=== PATIENT | male | born 1945 | race Caucasian/White ===

== ENCOUNTER → 2018-02-21 07:01 | Outpatient (CLI) | payer MEDICARE, BC, SELFPAY ==
[2018-02-21 10:32] LABS: Anion Gap 9 (5-15); BUN 16 mg/dL (7-18); BUN/Creat Ratio 18.1 RATIO (10-20); Calcium,Total 8.7 mg/dL (8.5-10.1); Chloride 105 mmol/L (98-107); Cholesterol 186 mg/dL (200); Creatinine, Serum 0.88 mg/dL (0.70-1.30); EST Glomerular Filtration Rate 90 mL/min (>60); Est Glom Filt Rate - Afr Amer 109 mL/min (>60); Glucose 115 mg/dL (74-106); High Density Lipoprotein 35 mg/dL; PSA,Total - Annual Screen 6.31 ng/mL (0.00-4.00); Potassium 3.9 mmol/L (3.5-5.1); Sodium Level 140 mmol/L (136-145); Triglycerides 95 mg/dL; Very Low Density Lipoprotein 19 mg/dL (5-40)
== END ==
PROVIDERS: Family Provider Family Medicine; PCP Family Medicine; Visit Provider Family Medicine
DX: Z00.00 Encounter for general adult medical examination without abnormal findings (principal); Z12.5 Encounter for screening for malignant neoplasm of prostate
CPT/HCPCS: 36415; 80048; 80061; 84153; G0103

== ENCOUNTER → 2018-12-08 08:57 | Outpatient (CLI) | payer MEDICARE, BC, SELFPAY ==
--- NOTE | 2018-12-08 | IMM_PTH ---
PATIENT: AXEL BAUER LOC: [facility] U#:[id number] AGE/SX: 80/M ROOM: RE12/08/[address]: Dr. Cj Church MD : 1945 BED: DIS: SPEC #: [id number] RECD: 12/12/18 10:57 STATUS: TINO REVern #: [id number] KIMBERLY: 12/08/18 00:[address]: Cj Church DEPT: IMMUNOHISTOCHEMISTRY RECD BY: Evangelina Lizarraga ENTERED: 12/12/18 10:58 SP TYPE: IMMUNO OTHR DR: Dr. Binh Vargas MD Tissues: B - PROSTATE RIGHT C - PROSTATE RIGHT E - PROSTATE LEFT Procedures: 34BE12 (add) P40 (add) 34BE12 (initial) PHYSICIAN & INSTITUTION [place] [id number] SPECIMEN INFORMATION: Tissue Source: B - Right prostate mid, C - Right prostate base, E - Left prostate mid Clinical Info: Elevated PSA Specimen Number: [id number] B, C & E CPT code: 00467, 22040 x5 METHODOLOGY: Deparaffinized sections of prefer/formalin-fixed tissue or PAP/DQ stained slides are incubated with monoclonal/polyclonal antibodies/oligonucleotide probes. Localization is made via biotin free immunoperoxidase method. Appropriate controls are performed and reacted as expected. Results on target cell population are indicated in the following table: RESULTS: ANTIBODY / CLONE RESULT Block B 34BE12 (34BE12) negative P40 (BC28) negative Block C 34BE12 (34BE12) negative P40 (BC28) negative Block E 34BE12 (34BE12) negative P40 (BC28) negative These tests were developed and their performance characteristics determined by [facility]. They may not have been cleared or approved by the U.S. Food and Drug Administration. The FDA has determined that such clearance or approval is not necessary. INTERPRETATION: B. Right prostate, mid, core biopsy: Adenocarcinoma. C. Right prostate, base, core biopsy: Adenocarcinoma. E. Left prostate, mid, core biopsy: Focal atypical small acinar proliferation suspicious for minute focus of adenocarcinoma. AM:michael 12/13/18
--- NOTE | 2018-12-08 | PROSBIL_PTH ---
PATIENT: AXEL BAUER LOC: [facility] U#:[id number] AGE/SX: 80/M ROOM: RE12/08/[address]: Dr. Cj Church MD : 1945 BED: DIS: SPEC #: [id number] RECD: 12/08/18 17:25 STATUS: TINO KIRAN #: [id number] KIMBERLY: 12/08/18 00:[address]: Cj Church DEPT: SURGICAL PATHOLOGY RECD BY: Edmar Teague ENTERED: 12/09/18 09:03 SP TYPE: PROST BX YUDI DR: Dr. Binh Vargas MD Tissues: A - PROSTATE RIGHT B - PROSTATE RIGHT C - PROSTATE RIGHT D - PROSTATE LEFT E - PROSTATE LEFT F - PROSTATE LEFT Procedures: PROSTATE BX HEADER OPERATION: Prostate biopsy PRE-OP DIAGNOSIS: Elevated PSA TISSUE SUBMITTED: A - Right apex, B - Right mid, C - Right base, D - Left apex, E - Left mid, F - Left base MICROSCOPIC DIAGNOSIS A. Right prostate, apex, core biopsy: Mild chronic inflammation and focal glandular atrophy. B. Right prostate, mid, core biopsy: Adenocarcinoma: [place] grade: 6 (3+3) Cores involved: 1 out of 2 Tissue involved: <1% Greatest tumor length: 1 mm See comment. C. Right prostate, base, core biopsy: Adenocarcinoma: [place] grade: 6 (3+3) Cores involved: 1 out of 2 Tissue involved: 5% Greatest tumor length: 3 mm Other - focal atypical small acinar proliferation. See comment. D. Left prostate, apex, core biopsy: Mild chronic inflammation and glandular atrophy. E. Left prostate, mid, core biopsy: Mild chronic inflammation and glandular atrophy. Focal atypical small acinar proliferation suspicious for minute focus of adenocarcinoma. See comment. F. Left prostate, base, core biopsy: Mild chronic inflammation & glandular atrophy. Focal high-grade prostatic intraepithelial neoplasia (HGPIN). AM:michael 12/12/18 COMMENT B, C & E - Immunohistochemistry ([id number]) supports the above diagnosis. Case has been reviewed in consultation with Dr. Villa who concurs with the above diagnosis. IDC:SJ MICROSCOPIC DESCRIPTION Slides are reviewed. GROSS DESCRIPTION A - Received is one container designated prostate, right apex. The specimen consists of two elongated fragments of light sampson-white soft tissue each measuring 1 cm in length and 0.1 cm in diameter. The specimen is totally submitted in one cassette. B - Received is one container designated prostate, right mid. The specimen consists of two elongated fragments of light sampson-white soft tissue each measuring 1.5 cm in length and 0.1 cm in diameter. The specimen is totally submitted in one cassette. C - Received is one container designated prostate, right base. The specimen consists of two elongated fragments of light sampson-white soft tissue each measuring 1.2 cm in length and 0.1 cm in diameter. The specimen is totally submitted in one cassette. D - Received is one container designated prostate, left apex. The specimen consists of two elongated fragments of light sampson-white soft tissue each measuring 1 cm in length and 0.1 cm in diameter. The specimen is totally submitted in one cassette. E - Received is one container designated prostate, left mid. The specimen consists of two elongated fragments of light sampson-white soft tissue each measuring 1 cm in length and 0.1 cm in diameter. The specimen is totally submitted in one cassette. F - Received is one container designated prostate, left base. The specimen consists of two elongated fragments of light sampson-white soft tissue each measuring 1.5 cm in length and 0.1 cm in diameter. The specimen is totally submitted in one cassette. / AM:michael 12/09/18 TC:0 CPT: G0146 ADDENDUM ADDENDUM ADDENDUM ADDENDUM ADDENDUM ADDENDUM ADDENDUM ADDENDUM 01/20/2019 10:45 ADDENDUM 01/20/2019 10:45 ADDENDUM 01/20/2019 10:45 ADDENDUM 01/20/2019 10:45 ADDENDUM 01/20/2019 10:45 An order for Oncotype testing was received from Dr. Church. This necessitated case review, block and slide selection by pathologist at [facility]. Genomic Prostate Score = 47 Results of the complete Oncotype testing ([facility] report) are viewable in EMR under: Reports - Pathology - Lab Pathology Report, Scanned.
== END ==
PROVIDERS: Family Provider Family Medicine; PCP Family Medicine; Referring Provider Urology; Visit Provider Urology
DX: R97.20 Elevated prostate specific antigen [PSA] (principal)
CPT/HCPCS: 88305; 88341; 88342; G0416

== ENCOUNTER 2019-11-01 08:57 | Day surgery (SDC) | payer MEDICARE, BC, SELFPAY ==
[2019-11-01 09:36] VITALS: BP 185/86; PULSE 50; RESP 16; TEMP 37.1; O2SAT 95; BMI 32.5
[2019-11-01] MEDS: Lactated Ringers 1,000 ML 100 ML IV (10:10)
[2019-11-01] MEDS: Ciprofloxacin 400 MG/200 ML BAG 200 MG IV (10:11)
--- NOTE | 2019-11-01 10:17 | DCINST_ITS ---
Discharge Diet: Light diet - advance as tolerated Discharge Activity: Return to Normal Activity Suture Line Care: Avoid Pulling/Pushing, Avoid Pinching/Bending Allergies/Adverse Reactions: Allergies No Known Allergies Allergy (Verified 10/25/19 15:23) Medications to take at Discharge Aspirin [Aspir 81] 81 mg PO DAILY 10/25/19 Primary Care Physician: Binh Vargas MD [Primary Care Provider] - Test Results: Test results from this visit will be discussed in further detail at your follow- up appointment, if applicable. Please Follow Up With: Cj Church MD When: please call to make an appointment.
--- NOTE | 2019-11-01 10:50 | PCM.OPRPT ---
Report of Operation Date of Procedure: 11/01/19 Pre-Operative Diagnosis: Prostate cancer Post-Operative Diagnosis: Same Surgery/Procedure Performed:: Trans perineal ultrasound guidance of fiducial gold markers into the prostate, transperineal placement of spacer organ at risk gel separate prostate from rectum. Description of Surgical Findings:: 74-year-old male is elected to undergo external beam radiation therapy for prostate cancer, working in place gold markers in the prostate today to help with the radiation dosage and treatment and also we can place a spacer gel to separate the rectum off the prostate to lower the toxicities of the radiation to the rectum. Patient was taken back to the operating room at the smooth induction of anesthesia he was placed upon the table and then in dorsolithotomy position we then placed the brachytherapy template onto the table placed patient was placed in high lithotomy we secured the testicles and penis out of the field we then prepped the perineum with Betadine I then placed an ultrasound probe a biplanar probe into the rectum performed ultrasonography to identify the prostate identified the Denonvilliers' fascia and identified the fat between the rectum and Denonvilliers' fascia in the prostate identified the seminal vesicles and the prostate itself. Then using the biplanar ultrasound probe through the perineum I advanced 3 needles into the prostate and the deployed 3 gold markers into the right base left base and left apex of the prostate once her markers were placed then I prepared the spacer gel matrix in the back table per the inventory associate and driver's instructions I then used a beveled needle to advanced into the space between the rectum and the prostate once I was in the space I injected injectable saline into the area could see a puff of saline developed in the area nicely hydrodissected the area and then after this was done then I injected the gel between the rectum and the prostate to push the rectum the prostate off each other injected gel over a course of 14 seconds after the gel pressure preparation was injected hard and the needle was removed and the patient acetic is being reversed. Underwent the placement of the machine marker successfully and the spacer gel was a successful injection with good separation between the rectum and the prostate. Type of Anesthesia:: General - Admit VTE Documentation VTE Present on Admission: No VTE Mechan Device Prophylaxis: SCD's
[2019-11-01 11:03] VITALS: BP 128/82; BP 185/86; PULSE 59; RESP 18; TEMP 36.6; O2SAT 97
[2019-11-01 11:15] VITALS: BP 127/75; BP 185/86; PULSE 44; RESP 18; O2SAT 97
[2019-11-01 11:30] VITALS: BP 142/75; BP 185/86; PULSE 41; RESP 18; O2SAT 95
[2019-11-01 11:34] VITALS: BP 148/81; BP 185/86; PULSE 44; RESP 18; TEMP 36.7; O2SAT 97
[2019-11-01 12:28] VITALS: BP 185/86; BP 194/97; PULSE 48; RESP 18; TEMP 36.5; O2SAT 96
== END 2019-11-01 12:30 | disposition home or self-care (01) ==
LOC: SDC 08:59 → AC 09:01
PROVIDERS: Family Provider Family Medicine; PCP Family Medicine; Referring Provider Urology; Visit Provider Urology
PROC: (CPT 55874; principal; 2019-11-01 10:50)
DX: C61 Malignant neoplasm of prostate (principal); R97.20 Elevated prostate specific antigen [PSA]; N40.0 Benign prostatic hyperplasia without lower urinary tract symptoms; Z79.82 Long term (current) use of aspirin; Z87.891 Personal history of nicotine dependence
CPT/HCPCS: 00902; 55874; 55876; J7120; J0744; J2405

== ENCOUNTER → 2019-11-14 10:23 | Outpatient (CLI) | payer MEDICARE, BC, SELFPAY ==
[2019-11-01 09:36] VITALS: BMI 32.5
[2019-11-14 10:41] LABS: Absolute Lymphocyte Count 2.62 X10^3/uL (0.83-4.51); Absolute Neutrophil Count 5.7 X10^3/uL (2.0-7.7); Basophil# 0.04 X10^3/uL; Basophil% 0.4 % (0-1); Eosinophil# 0.14 X10^3/uL; Eosinophils% 1.5 % (0-5); Hematocrit 43.5 % (40-54); Hemoglobin 14.9 g/dL (13.0-16.5); Lymphocyte # 2.62 X10^3/ul (4.0); Lymphocyte % 28.5 % (19-41); Mean Corp Hgb Conc 34.3 g/dL (32-36); Mean Corpuscular Hgb 31.7 pg (27.0-32.0); Mean Corpuscular Volume 92.6 fL (80-94); Mean Platelet Vol. 9.4 fl (6.2-12.0); Monocyte# 0.69 X10^3/uL; Monocyte% 7.5 % (0-10); NRBC Flagged by Analyzer 0 % (0-5); Neutrophil # 5.67 X10^3/uL (2.7-7.7); Neutrophil % 61.7 % (47-70); Platelet Count 211 K/mm3 (150-450); RBC Distribution Width CV 12.9 % (11.6-14.6); RBC Distribution Width SD 44.2 fl (35.1-43.9); White Blood Count 9.2 K/mm3 (4.4-11.0)
[2019-11-14 11:18] LABS: Creatinine, Serum 1.12 mg/dL (0.70-1.30); EST Glomerular Filtration Rate 68 mL/min (>60); Est Glom Filt Rate - Afr Amer 83 mL/min (>60)
== END ==
PROVIDERS: Family Provider Family Medicine; PCP Family Medicine; Referring Provider Radiology Radiation Oncology; Visit Provider Radiology Radiation Oncology
DX: Z01.818 Encounter for other preprocedural examination (principal); C61 Malignant neoplasm of prostate
CPT/HCPCS: 36415; 82565; 84153; 85025

== ENCOUNTER → 2019-11-15 10:47 | Outpatient (CLI) | payer MEDICARE, BC, SELFPAY ==
[2019-11-01 09:36] VITALS: BMI 32.5
--- NOTE | 2019-11-15 10:53 | CT_ITS ---
STUDY: CT PELVIS WITH CONTRAST REASON FOR EXAM: Male, 74 years old. Radiation planning for prostate cancer RADIATION DOSAGE (If Supplied By Facility): CTDIvol = ( 24.62 ) mGy, DLP = ( 1472.91 ) mGycm TECHNIQUE: Transaxial imaging of the pelvis was performed with oral contrast. 100 CC ISOVUE 370 was administered intravenously. Individualized dose optimization techniques were used for this CT. COMPARISON: None. FINDINGS: Urinary bladder is distended with small diverticula. The left ureter is dilated and has an aberrant course terminating along the lateral left urinary bladder on image 52. Focal high density on this image may represent a small UVJ/ureteral calculus. The prostate is enlarged with 3 metallic implants. Normal visualized small intestine. Normal visualized colon. There is no pelvic fluid. There is no pelvic lymphadenopathy or mass lesion. There is diffuse atherosclerotic calcification of the pelvic arteries. Normal abdominal wall. Normal osseous structures. CT/CT Pelvis W/CONT Therapy IMPRESSION: 1. Left hydroureter. Apparent aberrant left ureteral course/implantation (lateral left urinary bladder wall) with suspected punctate (2 mm) UVJ calculus. 2. Prostatomegaly with metallic implants. No pelvic sidewall adenopathy. Electronically Signed: Kaushik Mancia MD ([place]) at 20:17 EST , Service support ,
== END ==
PROVIDERS: Family Provider Family Medicine; PCP Family Medicine; Referring Provider Radiology Radiation Oncology; Visit Provider Radiology Radiation Oncology
DX: C61 Malignant neoplasm of prostate (principal)
CPT/HCPCS: 51600; 72193; Q9965; Q9967

== ENCOUNTER → 2020-04-12 16:10 | Outpatient (CLI) | payer MEDICARE, BC, SELFPAY | PROVIDERS: PCP Family Medicine; Referring Provider Family Medicine; Visit Provider Family Medicine | DX: L03.019 Cellulitis of unspecified finger (principal) | CPT/HCPCS: 87070; 87205 ==

== ENCOUNTER → 2020-11-14 12:28 | Outpatient (CLI) | payer MEDICARE, BC, SELFPAY ==
[2020-08-17 08:34] VITALS: BMI 32.5
== END ==
PROVIDERS: PCP Family Medicine; Visit Provider Urology
DX: N39.0 Urinary tract infection, site not specified (principal)
CPT/HCPCS: 87086

== ENCOUNTER 2021-08-15 07:14 | Day surgery (SDC) | payer MEDICARE, BC, SELFPAY ==
[2021-08-15] VITALS (7 sets, daily range): BP systolic 84–109; BP diastolic 46–78; PULSE 72–119; RESP 16; TEMP 36.4–36.6; O2SAT 98–100; BMI 29.7
[2021-08-15] MEDS: Lactated Ringers 1,000 ML 100 ML IV (07:51)
--- NOTE | 2021-08-15 08:15 | H&P.OPEN ---
HPI - General HPI Narrative AXEL BAUER, is a 76 M who presents for screening colonoscopy. The patient has never had a colonoscopy in the past. He denies any abdominal pain or blood in stool. He denies any family history of colon cancer. [facility] Medical History (Updated 08/15/21 @ 08:[address] Keagan Mares MD) Alcohol use Bladder disease Cancer Former smoker Heartburn Hx of fracture of arm Hypertension Leg cramps Prostate cancer Prostate disease Wears glasses Home Medications aspirin 81 mg PO DAILY 10/25/19 [History Last Taken 08/08/21] amlodipine 5 mg tablet 10 mg PO DAILY 08/17/20 [History Last Taken Unknown] lisinopril 10 mg tablet 40 mg PO DAILY 08/17/20 [History Last Taken Unknown] silodosin 4 mg capsule 8 mg PO DAILY 08/17/20 [History Last Taken Unknown] hydrochlorothiazide 25 mg PO DAILY 08/12/21 [History Last Taken Unknown] mirabegron [Myrbetriq] 25 mg PO DAILY 08/12/21 [History Last Taken Unknown] Allergy/AdvReac Type Severity Reaction Status Date / Time No Known Allergies Allergy Verified 08/12/21 13:39 Surgical History (Updated 08/12/21 @ 13:55 by Qiana Coyle) Hx of hand surgery Social History (Updated 08/17/20 @ 08:59 by JANUSZ Napoles) Smoking Status: Former smoker alcohol intake: current alcohol intake frequency: holidays/special occasions only Past Medical/Surgical History Planned Operation Planned Operative Procedure/s: cscope open access S.O.S: No Previous Hospitalizations/Surgeries HX Hospitalizations: No HX of Surgeries: arm surgery as child cscope Any Problems With Anesthesia: No You/Your Family Experience Fever (Hyperthermia) With Anes: No Cholinesterase deficiency: No Cardiovascular Hx Chest Pain within Last 2 months: No Hx of Irregular Heartbeat and/or Afib: No Hx Heart Attack: No Hx Congestive Heart Failure: No Hx Rheumatic Fever: No Hx Hypertension: Yes (controlled with meds) Hx Internal Defibrillator: No Hx Pacemaker: No Hx Cardiac Catheterization: No Hx Cardiac Surgery/Stents/Etc.: No Hx Stress Test: No Hx Pain in Legs when Walking/Leg Cramps: No Respiratory Chronic Cough: No HX of Shortness of Breath: No Hoarseness: No Hx Chronic Obstructive Pulmonary Disease (COPD): No Hx Asthma: No Hx Emphysema: No Hx Sleep Apnea: No Hx Respiratory Tract Infection/Cold (presently): No Do You Snore Loudly (louder than talking or can be heard): No Do You Often Feel Tired/ Fatigued/ Sleepy Dring Daytime?: No Has Anyone Observed You Stop Breathing During Sleep?: No Result (for STOP score): Negative Hx Smoking: Yes (quit 15 yrs ago) Smoking Status: Former smoker Gastrointestinal Hx Gastroesophageal Reflux: No Hx Gastrointestinal Disorders: No Hx Gastrointestinal Bleed: No Hx Ulcer: No Hx Hiatal Hernia: No Difficulty Chewing/Swallowing: No Special diet followed at home: No Hx Unplanned Weight Loss of 20#: No HX Unplanned Weight Gain of 20#: No Neurological Hx Seizures: No HX Syncope/Blackout Spells/Unconsciousness: No Hx Transient Ischemic Attacks (TIA): No Hx Multiple Sclerosis: No Hx Parkinson's Disease: No Hx Head/Neck Injury: No Hx Headaches: No Hx Back Injury/Pain: No Recent Onset of Speech Difficulty: No Restless Legs: No Does patient have nerve stimulator: No Blood Disorder Hx Leukemia: No Bleeding Tendencies: No Hx Deep Vein Thrombosis: No Hx High Cholesterol: No Blood Transmitted Disease: No Hx Hepatitis: No Hx Cirrhosis: No Hx Anemia: No Hx Blood Disorders: No Reproduction : No Genitourinary Hx Renal Disease: No (prostate cancer) Musculoskeletal Hx Arthritis: No Hx Rheumatoid Arthritis: No Hx Gout: No Recent Onset of an Orthopedic Problem: No Endocrine Hx Diabetes: No Thyroid Disease: No Hx Steroid Therapy: No Psycho/Social Hx Substance Use: No Hx Alcohol Use: Yes (rarely) Hx Anxiety: No Hx Depression: No Mental Illness: No Hx Dementia: No Miscellaneous Hx Cancer: Yes (prostate) Recent Exposure to Contagious Disease: No Hx of C-Diff: No Any Loose Teeth: No Allergies No Known Allergies Allergy (Verified 08/12/21 13:39) Discharge Is Pt Admitted From a Retirement, or a Custodial: No After D/C, Where Do you Plan to Go: Return Home From the [facility] History Number of Risk Factors: 2 Vital Signs Vital Signs Vital Signs: 08/15/21 07:39 Temperature 97.6 F L Temperature Source Temporal Pulse Rate 119 H Respiratory Rate 16 Respiratory Pattern Normal Blood Pressure 109/78 Blood Pressure Mean 88 Blood Pressure Source Monitor Blood Pressure Position Sitting Blood Pressure Location Left Arm Pulse Ox 98 Oxygen Delivery Method Room Air Weight Weight: 218 lb 14.704 oz Body Mass Index (BMI) 29.7 Physical Exam Const alert and oriented x3 Exam Limitations: Negative for altered mental status Resp normal respiratory effort and normal air movement Cardio regular rate and regular rhythm GI soft to palpation, non-tender and non-distended Assessment & Plan Assessment/Plan (1) Screen for colon cancer: PLAN: I explained endoscopy in detail to the patient. I explained the risks including but not limited to stroke or heart attack with anesthesia, perforation of the GI tract, bleeding, infection. I explained that any of these could necessitate further emergency surgery. The patient understands and all questions were answered sufficiently. The patient wishes to proceed with procedure. Keagan Mares MD Pager: [facility] [address] [place] [address], [address] [place] [phone] Office: Surgery Risks - Colonoscopy Risks Include but are not Limited To: Risks include but are not limited to: Bleeding, perforation requiring further surgery, inability to complete colonoscopy requiring barium enema.
--- NOTE | 2021-08-15 08:30 | COLBX_PTH ---
PATIENT: AXEL BAUER LOC: [facility] U#:[id number] AGE/SX: 76/M ROOM: RE08/15/[address]: Dr. Keagan Mares MD : 1945 BED: DIS: 08/15/2021 SPEC #: [id number] RECD: 08/15/21 11:07 STATUS: TINO REVern #: [id number] KIMBERLY: 08/15/21 08:[address]: Keagan Mares DEPT: SURGICAL PATHOLOGY RECD BY: Whit Gloria ENTERED: 08/15/21 12:04 SP TYPE: COLON BX OTHR DR: Dr. Binh Vargas MD Tissues: A - Cecum, NOS B - Sigmoid colon biopsy Procedures: Surgery Specimen Level IV HEADER OPERATION: Colonoscopy ? open access (MAC) PRE-OP DIAGNOSIS: Screening TISSUE SUBMITTED: A ? Cecal polyp, B ? Sigmoid polyp MICROSCOPIC DIAGNOSIS A. Cecal polyp, biopsy: Tubular adenoma. B. Sigmoid colon polyp, biopsy: Fragments of tubular adenoma. AM:michael 08/18/2021 MICROSCOPIC DESCRIPTION Slides are reviewed. GROSS DESCRIPTION A - Received in fixative is one container labeled with the patient's name and designated cecal polyp. The specimen consists of a sampson-pink polyp measuring 0.6 x 0.6 x 0.5 cm. The specimen is bisected and submitted entirely in one cassette. B - Received in fixative is one container labeled with the patient's name and designated sigmoid polyp. The specimen consists of multiple polypoid pieces of sampson-pink soft tissue measuring in aggregate 1.5 x 0.9 x 0.4 cm. The specimen is totally submitted in one cassette. / SJ:michael 08/15/21 TC:5 CPT: 98709 x2
--- NOTE | 2021-08-15 08:53 | OP.COLON_ITS ---
Patient Name: Scar Slaughter Procedure Date: 08/15/2021 8:23 AM Date of : 1945 Age: 76 Procedure: Colonoscopy Indications: Screening for colorectal malignant neoplasm Providers: Keagan Mares MD Medicines: Monitored Anesthesia Care Patient Profile: This is a 76 year old male. Refer to note in patient chart for documentation of history and physical. Last Colonoscopy: none. The patient's first colonoscopy is today. Complications: No immediate complications. Estimated blood loss: Minimal. Procedure: Pre-Anesthesia Assessment: - Prior to the procedure, a History and Physical was performed, and patient medications and allergies were reviewed. The patient's tolerance of previous anesthesia was also reviewed. The risks and benefits of the procedure and the sedation options and risks were discussed with the patient. All questions were answered, and informed consent was obtained. Prior Anticoagulants: The patient has taken no previous anticoagulant or antiplatelet agents. After reviewing the risks and benefits, the patient was deemed in satisfactory condition to undergo the procedure. After I obtained informed consent, the scope was passed under direct vision. Throughout the procedure, the patient's blood pressure, pulse, and oxygen saturations were monitored continuously. The colonoscope was introduced through the anus and advanced to the cecum, identified by appendiceal orifice and ileocecal valve. The colonoscopy was performed without difficulty. The patient tolerated the procedure well. The quality of the bowel preparation was good. Scope In: 8:30:51 AM Scope Withdrawal Time 0 hours 13 minutes 21 seconds Scope Out: 8:48:48 AM Total Procedure Duration Time 0 hours 17 minutes 57 seconds Findings: Three polyps were found in the sigmoid colon and cecum. The polyps were small in size. These polyps were removed with a hot snare. Resection and retrieval were complete. The exam was otherwise without abnormality on direct and retroflexion views. Impression: - Three small polyps in the sigmoid colon and in the cecum, removed with a hot snare. Resected and retrieved. - The examination was otherwise normal on direct and retroflexion views. Recommendation: - Discharge patient to home. - Resume previous diet. - Continue present medications. - Await pathology results. - Repeat colonoscopy in 3 years for surveillance. Procedure Code(s): --- Professional --- 34469, Colonoscopy, flexible; with removal of tumor(s), polyp(s), or other lesion(s) by snare technique Diagnosis Code(s): --- Professional --- Z12.11, Encounter for screening for malignant neoplasm of colon D12.5, Benign neoplasm of sigmoid colon D12.0, Benign neoplasm of cecum CPT copyright 2017 [employer]. All rights reserved. The codes documented in this report are preliminary and upon feed handler review may be revised to meet current compliance requirements. Keagan Mares MD 08/15/2021 8:52:49 AM This report has been signed electronically. Number of Addenda: 0 Note Initiated On: 08/15/2021 8:23 AM
--- NOTE | 2021-08-15 08:54 | OP.CCLET_ITS ---
08/15/2021 Binh Vargas MD [address] [place] [phone] Re : Colonoscopy procedure for Scar Slaughter Dear Dr. Vargas This procedure was performed on Sunday, August 15, 2021. My impressions and recommendations are as follows: Impressions : - Three small polyps in the sigmoid colon and in the cecum, removed with a hot snare. Resected and retrieved. - The examination was otherwise normal on direct and retroflexion views. Recommendations : - Discharge patient to home. - Resume previous diet. - Continue present medications. - Await pathology results. - Repeat colonoscopy in 3 years for surveillance. My findings are described in the full procedure note, which is enclosed. If I can be of further assistance, please feel free to contact me at Doctor phone number(s): , Work: . Sincerely, Keagan Mares MD 08/15/2021 8:52:49 AM This report has been signed electronically.
== END 2021-08-15 09:24 | disposition home or self-care (01) ==
LOC: EN 07:20 → AC 07:22
PROVIDERS: PCP Family Medicine; Referring Provider Family Medicine; Visit Provider Surgery
PROC: 0DJD8ZZ Inspection of Lower Intestinal Tract, Via Natural or Artificial Opening Endoscopic (ICD-10-PCS; CPT 45378; principal; 2021-08-15 08:25)
DX: Z12.11 Encounter for screening for malignant neoplasm of colon (principal); D12.0 Benign neoplasm of cecum; D12.5 Benign neoplasm of sigmoid colon; I10 Essential (primary) hypertension; Z87.891 Personal history of nicotine dependence; Z79.82 Long term (current) use of aspirin; Z79.899 Other long term (current) drug therapy
CPT/HCPCS: 45385; 88305; J7120; J2405

== ENCOUNTER → 2023-09-02 | Outpatient (CLI) | payer MEDICARE, BC, SELFPAY ==
--- NOTE | 2023-09-02 15:37 | VDLE_ITS ---
Reason For Study: thigh pain RIGHT GSV is normal. CFV is compressible, spontaneous, phasic, competent and demonstrates normal augmentation. FV is compressible, spontaneous, phasic, competent and demonstrates normal augmentation. POP V is compressible, spontaneous, phasic, competent and demonstrates normal augmentation. T/P Trunk is compressible. PTV is compressible. RT PerV is compressible. Procedure This is a venous duplex using B-mode, color flow and spectral Doppler. Exam performed in department. The exam was abbreviated due to the COVID 19 protocol. The exam was diagnostic. A preliminary report was called and/or faxed to Dr. Vargas. VL/Venous Duplex US, Unilateral Interpretation Summary Deep veins of the right lower extremity are patent and compressible segmentally . There is no evidence of right lower extremity deep vein thrombosis. The right great sapheno us vein appears patent and compressible segmentally. Ordering Physician: Binh Vargas Performed By: Ian Paz RVT
== END | disposition home or self-care (01) ==
PROVIDERS: PCP Family Medicine; Referring Provider Family Medicine; Visit Provider Family Medicine
DX: M79.651 Pain in right thigh (principal)
CPT/HCPCS: 93971

== ENCOUNTER → 2023-11-03 | Outpatient (CLI) | payer MEDICARE, BC, SELFPAY ==
--- NOTE | 2023-11-03 14:23 | RAD_ITS ---
INDICATION: RIGHT HIP PAIN EXAMINATION/TECHNIQUE: X-RAY - XR Hips Bilateral with Pelvis when performed; 2 Views COMPARISON: Prior study dated: CT from 11/15/2019 FINDINGS: PELVIC BONES: No displaced fracture, destructive or sclerotic lesions. Note that overlapping bowel shadows may however obscure fine detail. Sacroiliac joints are unremarkable. No widening of the pubic symphysis. HIPS: The hips are well aligned. Mild degenerative change at both hips with subchondral sclerosis and small osteophytes. No displaced fracture seen in this frontal view. SOFT TISSUES: No soft tissue swelling or gas. RAD/Hips B/L min 2 views w/ Pelvis IMPRESSION: No evidence of displaced pelvic or hip fracture. Mild degenerative change of both hips. Electronically Signed: Chandan Purdy MD at 16:45 EST ,
== END | disposition home or self-care (01) ==
LOC: MTRAD 14:22
PROVIDERS: PCP Family Medicine; Referring Provider Family Medicine; Visit Provider Family Medicine
DX: M25.551 Pain in right hip (principal)
CPT/HCPCS: 73521

== ENCOUNTER → 2024-03-27 | Outpatient (CLI) | payer MEDICARE, BC, SELFPAY ==
--- NOTE | 2024-03-27 08:46 | MRI_ITS ---
STUDY: MRI LUMBAR SPINE WITHOUT CONTRAST REASON FOR EXAM: Male, 79 years old. Right lumbar radiculopathy. Right thigh pain x9 months. TECHNIQUE: Standardized fat and water weighted pulse sequences were obtained in the sagittal and axial planes. COMPARISON: None FINDINGS: T11-T12: (Sagittal only). Normal endplates. Normal disc height. No ventral extradural defect. Normal central canal and bilateral intervertebral neural foramina. T12-L1: Normal endplates. Normal disc height, hydration and morphology. Normal bilateral facet joints. Normal central canal and bilateral lateral recesses. Normal bilateral intervertebral neural foramina. Normal lumbar lordosis. There is no substantial scoliosis. Normal conus medullaris that terminates at the T12-L1 disc space level. L1-2: Modic type II degenerative vertebral marrow fat infiltration underneath the vertebral endplates. Moderately pronounced disc space height narrowing. No ventral extradural defect. Normal facet joints. Normal central canal and bilateral lateral recesses. Normal bilateral intervertebral neural foramina. L2-3: Normal endplates. Normal disc height, hydration and morphology. Normal bilateral facet joints. Normal central canal and bilateral lateral recesses. Normal bilateral intervertebral neural foramina. L3-4: Normal endplates. Normal disc height and hydration and morphology. The asymmetric posterior ligamenta flava hypertrophy. Mild bilateral degenerative facet arthropathy. Mild central canal stenosis with an AP canal diameter of 10 mm. Normal bilateral lateral recesses. Normal bilateral intervertebral neural foramina. L4-5: Normal endplates. Minimal disc space height narrowing. Minimal degenerative anterolisthesis of L4 on L5. Moderate bilateral degenerative facet arthropathy. 1.6 x 0.8 x 1.2 cm right medial synovial cyst causing medial displacement of the thecal sac and pronounced central canal stenosis with a transverse canal diameter of 4.3 mm. This is causing anterior displacement of the right L5 nerve root sleeve and right lateral recess stenosis. Smaller degenerative cyst behind the medial synovial cyst. Normal left lateral recess. Normal bilateral intervertebral neural foramina. L5-S1: Normal endplates. Mild disc space height narrowing with degenerative vacuum phenomenon. Moderate left degenerative facet arthropathy. Mild right degenerative facet arthropathy. Mild central canal stenosis with an AP canal diameter of 9 mm surrounded by epidural lipomatosis. Normal bilateral lateral recesses. Moderate stenosis of the left intervertebral neural foramen. Normal right intervertebral neural foramen. Normal visualized sacral ala. Tortuous and dilated left ureter suspicious for hydroureter versus megaloureter. Mild thickening of the urinary bladder wall. Normal paraspinal soft tissues. MRI/Spine Lumbar (Routine) IMPRESSION: 1. Markedly dilated and tortuous left ureter. Hydroureter versus megaloureter. CT IVP will help clarify. 2. Large right medial synovial cyst (1.6 x 0.8 x 1.8 cm) at L4-L5 disc space level causing medial displacement of the thecal sac, minimal degenerative anterolisthesis of L4 on L5, pronounced central canal stenosis with a transverse canal diameter of 4.3 mm, right lateral recess stenosis and anterior displacement of the right L5 nerve root sleeve. Smaller degenerative cyst behind the right medial synovial cyst. 3. Mild central canal stenosis at L5-S1 disc space level with an AP canal diameter of 9 mm surrounded by epidural lipomatosis and moderate stenosis of the left L5-S1 intervertebral neural foramen. 4. Mild central canal stenosis at L3-L4 disc space level with an AP canal diameter of 10 mm. 5. No MRI evidence of lumbar extruded disc fragment or disc protrusion. Electronically Signed: Rafiq Gutierrez MD at 12:31 EDT ,
== END | disposition home or self-care (01) ==
LOC: MRI 10:37
PROVIDERS: PCP Family Medicine; Referring Provider Family Medicine; Visit Provider Family Medicine
DX: M54.10 Radiculopathy, site unspecified (principal)
CPT/HCPCS: 72148

== ENCOUNTER → 2024-04-20 | Outpatient (CLI) | payer OTHER, SELFPAY ==
[2024-04-20 09:14] LABS: Color, Urine Yellow (Yellow); Glucose, Dipstick Normal (Normal); Ketone-Dipstick Negative (Negative); Leukocyte Esterase-Dipstick 500 /ul (Negative); Nitrite-Dipstick Negative (Negative); Occult Blood-Urine 50 /ul (Negative); Protein-Dipstick 100 mg/dl (Negative); Urine Bilirubin Dipstick Negative (Negative); Urine Clarity Sl. Cloudy (Clear); Urine Urobilinogen Normal (Normal)
[2024-04-20 09:47] LABS: ALB/GLOB Ratio 0.9 RATIO (0.9-2.4); AST(SGOT) 26 U/L (15-37); Alanine Aminotransfer ALT/SGPT 24 U/L (16-61); Albumin, Serum 3.6 g/dL (3.2-5.0); Alkaline Phosphatase 64 U/L (45-117); Anion Gap 7 (5-15); BUN 19 mg/dL (7-18); BUN/Creat Ratio 19.6 RATIO (10-20); Calcium,Total 8.8 mg/dL (8.5-10.1); Chloride 106 mmol/L (98-107); Creatinine, Serum 0.97 mg/dL (0.70-1.30); EST Glomerular Filtration Rate 80 mL/min (>60); Est Glom Filt Rate - Afr Amer 96 mL/min (>60); Globulin 3.8 g/dL (2.2-4.2); Glucose 157 mg/dL (74-106); Potassium 3.7 mmol/L (3.5-5.1); Protein, Total 7.4 g/dL (6.4-8.2); Sodium Level 138 mmol/L (136-145)
== END | disposition home or self-care (01) ==
LOC: LAB 08:37
PROVIDERS: PCP Family Medicine; Referring Provider Chiropractor; Visit Provider Chiropractor
DX: E11.9 Type 2 diabetes mellitus without complications (principal)
CPT/HCPCS: 36415; 80053; 81002

== ENCOUNTER 2024-09-05 09:46 | Day surgery (SDC) | payer MEDICARE, BC, SELFPAY ==
[2024-09-05] VITALS (7 sets, daily range): BP systolic 77–89; BP diastolic 54–68; PULSE 74–104; RESP 16–18; TEMP 36.1–36.8; O2SAT 97–99; BMI 32.0
--- NOTE | 2024-09-05 | IMM_PTH ---
PATIENT: AXEL BAUER LOC: EN U#:[id number] AGE/SX: 79/M ROOM: RE09/05/[address]: Dr. Keagan Mares MD : 1945 BED: DIS: 09/05/2024 SPEC #: [id number] RECD: 09/06/24 11:08 STATUS: TINO REQ #: [id number] KIMBERLY: 09/05/24 00:[address]: Keagan Mares DEPT: IMMUNOHISTOCHEMISTRY RECD BY: Sunil Flood ENTERED: 09/06/24 11:09 SP TYPE: IMMUNO OTHR DR: Dr. Binh Vargas MD Tissues: Ascending colon Procedures: MLH-1 (add) MSH6 (add) Anti-PMS2 (add) HER2 LUIS (add) KI-67 (add) P53 (add) MSH2 (initial) MOC-31 (add) PHYSICIAN & INSTITUTION [place] [phone] SPECIMEN INFORMATION: Tissue Source: Ascending colon polyp Clinical Info: Encounter for colonoscopy due to history of colonic polyp Specimen Number: [id number] CPT code: 34240,25525t6 METHODOLOGY: Deparaffinized sections of prefer/formalin-fixed tissue or PAP/DQ stained slides are incubated with monoclonal/polyclonal antibodies/oligonucleotide probes. Localization is made via biotin free immunoperoxidase method. Appropriate controls are performed and reacted as expected. Results on target cell population are indicated in the following table: RESULTS: ANTIBODY / CLONE RESULT Her-2neu (CB11) negative MOC-31 (4561) positive MLH-1 (M1) positive MSH2 (25D12) positive MSH6 (44) positive PMS2 (IQE2658) positive Ki-67 (30-9) positive, >95% P53 (DO-7) positive, wild type Testing for Her2 by IHC if equivocal, recommend testing for Her2 by FISH(remove/not needed) These tests were developed and their performance characteristics determined by [facility]. They may not have been cleared or approved by the U.S. Food and Drug Administration. The FDA has determined that such clearance or approval is not necessary. The above immunohistochemical/dualISH markers are ordered and reviewed by the Pathologist. INTERPRETATION: Ascending colon polyp, polypectomy: Invasive adenocarcinoma. Result of Microsatellite Instability Study: Negative (no loss of mismatch protein; no microsatellite instability detected). 09/07/2024
--- NOTE | 2024-09-05 10:04 | PCM.PRE.AN2 ---
ASA Classification* ASA Classification ASA Classification: 2 Assessment & Plan Anesthesia* Anesthesia Assessment Anesthesia Assessment: Discussed sedation and/or anesthesia options, risks, benefits, and alternatives with patient/parents/legal guardian/POA. Questions invited. The patient/parents/legal guardian/POA seems to understand and agrees to proceed with anesthesia plan. Reviewed the physical assessment, medical history, allergy history and patient home medications list prior to surgery/procedure/anesthetic and documented any changes. Performed airway and anesthesia risk assessments. Anesthesia Type Anesthesia Type: MAC (see written pre anesthesia record for full assessment) Anesthesia Focused Assessment* Airway Assessment Mouth opens: >3 cm Mallampati Score: II Focused Labs Anesthesia Preop lab: CBC WBC 9.2 K/mm3 (4.4-11.0) 11/14/19 10:27 RBC 4.70 M/mm3 (4.6-6.2) 11/14/19 10:27 Hgb 14.9 g/dL (13.0-16.5) 11/14/19 10:27 Hct 43.5 % (40-54) 11/14/19 10:27 Plt Count 211 K/mm3 (150-450) 11/14/19 10:27 CHEMISTRY Potassium 3.7 mmol/L (3.5-5.1) 04/20/24 08:41 Sodium 138 mmol/L (136-145) 04/20/24 08:41 BUN 19 mg/dL (7-18) H 04/20/24 08:41 Creatinine 0.97 mg/dL (0.70-1.30) 04/20/24 08:41 Glucose 157 mg/dL (74-106) H 04/20/24 08:41 TSH 0.93 uIU/mL (0.358-3.74) 12/25/16 08:33 COAG Pre-Assessment Diagnosis/Proposed Procedure Planned Operative Procedure(s): CSCOPE Anesthesia History Anesthesia History - flight dynamicist: Anesthesia History - flight dynamicist Hx Hospitalization No 09/04/24 11:51 Any Problems With Anesthesia No 09/04/24 11:51 Cholinesterase deficiency No 09/04/24 11:51 You/Your Family Experience No 09/04/24 11:51 fever (hyperthermia) with Relationship Recent Exposure to Contagious No 08/15/21 08:16 Disease Does patient have nerve No 09/04/24 11:51 stimulator Patient instructed to have device shut off --Does patient have Pacemaker or ICD? When Was Last Pacemaker Check QUESTION #4 FULL TEXT: You/Your Family Experience fever (hyperthermia) with Anesthesia Last Oral Intake Last Oral intake: Last Oral Intake NPO since Meds taken in AM with sips of water? Meds patient instructed to take am of surgery PONV PONV - flight dynamicist: PONV - flight dynamicist Female No 09/04/24 11:51 HX of Motion Sickness No 09/04/24 11:51 HX of N/V After Surgery No 09/04/24 11:51 Non-Smoker Yes 09/04/24 11:51 Duration of Surgery greater No 09/04/24 11:51 than 60 minutes Number of Risk Factors 1 09/04/24 11:51 PONV Score Low Risk 09/04/24 11:51 Height & Weight Height & Weight: Anesthesia: Height & Weight Height 6 ft 08/08/24 13:13 Respiratory Assessment Respiratory Assessment - flight dynamicist: Respiratory Tract Infection Hx - flight dynamicist Hx Respiratory Tract Infection No 09/04/24 11:51 STOP Sleep Apnea STOP Sleep Apnea - flight dynamicist: STOP Sleep Apnea - flight dynamicist Hx Hypertension Yes: CONTROLLED WITH MEDS 09/04/24 11:51 Hx Sleep Apnea Yes 09/04/24 11:51 CPAP Yes: NONCOMPLIANT 09/04/24 11:51 BIPAP No 09/04/24 11:51 Do you snore loudly (louder than talking or can be heard Do you often feel tired/ fatigued/ sleepy during daytime? Has anyone observed you stop breathing during sleep? STOP Results Positive 09/04/24 11:51 QUESTION #5 FULL TEXT : Do you snore loudly (louder than talking or can be heard through closed doors)? Tobacco Use History Tobacco Use History - flight dynamicist: Tobacco Use History - flight dynamicist Tobacco Use Smoking Status Former smoker 09/04/24 11:51 Hx Tobacco Use Yes 09/04/24 11:51 Years Smoking Packs Smoked per Day Smoking Cessation Date was No - quit smoking greater 09/04/24 11:51 within the last 15 years than 15 years ago Hx Smoking Cessation Date 11/29/02 09/04/24 11:51 Hx Smoking Cessation No 09/04/24 11:51 Counseling Hematologic Medial History Hematologic Hx - flight dynamicist: Hematologic Medical Hx - ancillary services manager Hx of Blood Transfusion No 09/04/24 11:51 Hx of Transfusion in last 3 No 09/04/24 11:51 Months Date of Last Transfusion (if within last 3 months) Ever experience any problems No 09/04/24 11:51 with transfusion(s)? Specify any problems Hx of Preganancy in last 3 N/A 09/04/24 11:51 Months Nurse Filling Out Transfusion DSCHRIBER 09/04/24 11:51 & Questions: Date: 09/04/24 09/04/24 11:51 Time: 11:52 09/04/24 11:51 Patient unable to answer at this time (ie. confused, unrespo /Reproduction History /Reproductive History - flight dynamicist: /Reproductive Hx- flight dynamicist Hx Now No 09/04/24 11:51 Gestational Age (in weeks): EDC: Hx Hx Para Hx Section SAB No 09/04/24 11:51 PFSH Medical History Wears dentures CPAP (continuous positive airway pressure) dependence Hx of fracture of arm Wears glasses Cancer Alcohol use Bladder disease Prostate disease Former smoker Leg cramps Prostate cancer Hypertension Home Medications ?Medication ?Instructions ?Recorded ?Last Taken ?Type aspirin 81 mg tablet,delayed 81 mg PO DAILY 10/25/19 08/31/24 History release hydrochlorothiazide 25 mg tablet 25 mg PO DAILY 08/12/21 Unknown History finasteride 5 mg tablet 5 mg PO DAILY 03/31/24 Unknown History rosuvastatin 5 mg tablet 5 mg PO DAILY 03/31/24 Unknown History ascorbic acid (vitamin C) 1,000 mg 1 g PO DAILY 08/08/24 Unknown History capsule cholecalciferol (vitamin D3) 25 25 mcg PO QDAY 08/08/24 Unknown History mcg (1,000 unit) capsule amlodipine 10 mg tablet 10 mg PO DAILY 09/04/24 Unknown History lisinopril 40 mg tablet 40 mg PO DAILY 09/04/24 Unknown History Allergy/AdvReac Type Severity Reaction Status Date / Time No Known Allergies Allergy Verified 09/04/24 11:48 Surgical History Hx of colonoscopy with polypectomy Hx of hand surgery Social History Smoking Status: Former smoker alcohol intake: current alcohol intake frequency: holidays/special occasions only Review of Systems (Anesthesia) ROS Narrative System reviewed and no additional complaints, except as documented.
[2024-09-05] MEDS: Lactated Ringers 1,000 ML 15 ML IV (10:41)
--- NOTE | 2024-09-05 10:41 | HP.PCM_ITS ---
History and Physical Date of Admission: 09/05/24 Intake Vital Signs 03/31/2410:17 08/08/2413:13 Height 6 ft 6 ft Weight: 243 lb 251 lb BMI 32.9 34.0 BP 118/70 Blood Pressure Location Rt brachial Position Sitting Respiration 17 Pulse 82 Pulse Source Monitor Pulse Oximetry (%) 97 Oxygen Delivery Method room air Intake Visit Reasons: RECALL COLONOSCOPY Chief Complaint: recall colonoscopy Is patient in pain?: No Allergies No Known Allergies Allergy (Verified 08/08/24 13:14) Medications ?Medication ?Instructions ?Recorded ?Confirmed ?Type aspirin 81 mg tablet,delayed 81 mg PO DAILY 10/25/19 08/08/24 History release amlodipine 5 mg tablet 10 mg PO DAILY 08/17/20 08/08/24 History lisinopril 10 mg tablet 40 mg PO DAILY 08/17/20 08/08/24 History hydrochlorothiazide 25 mg tablet 25 mg PO DAILY 08/12/21 08/08/24 History finasteride 5 mg tablet 5 mg PO DAILY 03/31/24 08/08/24 History rosuvastatin 5 mg tablet 5 mg PO DAILY 03/31/24 08/08/24 History ascorbic acid (vitamin C) 1,000 mg 1 g PO Q6H 08/08/24 08/08/24 History capsule cholecalciferol (vitamin D3) 25 25 mcg PO QDAY 08/08/24 08/08/24 History mcg (1,000 unit) capsule Have you fallen in the past year?: No PFSH Medical History Alcohol use Bladder disease Cancer Former smoker Heartburn Hx of fracture of arm Hypertension Leg cramps Prostate cancer Prostate disease Wears glasses Surgical History Hx of hand surgery Social History Smoking Status: Former smoker alcohol intake: current alcohol intake frequency: holidays/special occasions only HPI HPI HPI: Patient is a 79-year-old male here with history of colon polyps. He is here for surveillance colonoscopy. He denies any blood in the stool or abdominal pain. ROS General General: Yes fatigue; No weight change, appetite, colon cancer, breast cancer or weakness HEENT HEENT: No difficulty swallowing, eye injury, eye surgery, swollen glands or hoarseness Endo Endocrine: No thyroid disease, diabetes mellitus, thyroid cancer, Hair loss, heat intolerance or cold intolerance Skin Skin: No rash or changing moles Musc Musculoskeletal: Yes back problems; No arthritis, rheumatoid arthritis, gout or joint pain Cardio Cardiovascular: Yes high blood pressure; No murmur, pacemaker, heart disease, atrial fibrillation, heart attack, heart stent, palpitations, shortness of breat with exertion or chest pain Psych Psychiatric: No depression, anxiety or hearing voices Resp Respiratory: No shortness of breath, Yes sleep apnea, No cough, No COPD, No asthma, No emphysema and No wheezing Gastro Gastrointestinal: No abdominal pain, No nausea or vomiting, No diarrhea, No constipation, No blood in stool, No acid reflux, No hemorrhoids, No ulcers, No gallbladder problem and No black,tarry stools Marquez Hematologic: No blood thinners, No blood disorders, No bleeding, No anemia and No blood clots Neuro Neurologic: No system reviewed and no additional complaints, except as documented, No as per HPI, No abnormal gait, No abnormal hearing, No abnormal movements, No abnormal speech, No behavioral changes, No burning sensations, No confusion, No convulsions, No disequilibrium, No dizziness, No localized weakness, No frequent falls, No headache(s), No lack of coordination, No loss of vision, No memory loss, Yes numbness, No other visual disturbances, No radicular pain, No restless legs, No sensory deficit, No syncope, Yes tingling, No tremor(s), No weakness and No other Exam Const General: cooperative Orientation: alert and oriented x3 HENMT Head: normal to inspection Neck Neck: normal visual inspection and full ROM Chest Chest palpation & inspection: normal inspection of the chest Resp Effort & Inspection: normal respiratory effort Auscultation: clear to auscultation bilaterally Cardio Rate: regular rate Rhythm: regular rhythm GI Inspection: non-distended Palpation: soft and nontender Skin General: no rashes or lesions noted Neuro General: patient alert and patient oriented x3 Extrem General: full ROM Psych Appearance: grossly normal Mental Status: mental status grossly normal Assessment and Plan Assessment and Plan (1) Encounter for colonoscopy due to history of colonic polyp: Status: Acute Plan: I explained endoscopy in detail to the patient. I explained the risks including but not limited to stroke or heart attack with anesthesia, perforation of the GI tract, bleeding, infection. I explained that any of these could necessitate further emergency surgery. The patient understands and all questions were answered sufficiently. The patient wishes to proceed with procedure. Keagan Mares MD Pager: [facility] [address] [place] [address], [address] [place] [phone] Office: I have examined the patient and the H&P has been reviewed. There are no clinical changes since date of exam.
[2024-09-05] MEDS: 0.9% Saline Lock 10 ML Syringe IV (11:00)
--- NOTE | 2024-09-05 11:15 | COLBX_PTH ---
PATIENT: AXEL BAUER LOC: EN U#:[id number] AGE/SX: 79/M ROOM: RE09/05/[address]: Dr. Keagan Mares MD : 1945 BED: DIS: 09/05/2024 SPEC #: [id number] RECD: 09/05/24 13:14 STATUS: TINO REVern #: [id number] KIMBERLY: 09/05/24 11:[address]: Keagan Mares DEPT: SURGICAL PATHOLOGY RECD BY: Whit Gloria ENTERED: 09/05/24 13:32 SP TYPE: COLON BX OTHR DR: Dr. Binh Vargas MD Tissues: Ascending colon Procedures: Surgery Specimen Level IV HEADER OPERATION: Colonoscopy, polypectomy PRE-OP DIAGNOSIS: Encounter for colonoscopy due to history of colonic polyp TISSUE SUBMITTED: Ascending polyp MICROSCOPIC DIAGNOSIS Ascending colon polyp, biopsy: Invasive well differentiated adenocarcinoma arising in association with tubular adenoma. See comment. AM.mr 09/06/2024 COMMENT The carcinoma focally extends to cauterized deep margin. Clinical correlation is necessary. Immunohistochemistry ([id number]) supports the above diagnosis. Case has been reviewed in consultation with Dr. Villa who concurs with the above diagnosis. IDC:[email or web address] MICROSCOPIC DESCRIPTION Slides are reviewed. GROSS DESCRIPTION Received in fixative is one container labeled with the patient's name and designated Ascending polyp. The specimen consists of a sampson-pink polyp measuring 1.0 x 0.9 x 0.5cm. This polyp is bisected. Also present in the container are multiple fragments of sampson soft tissue measuring in aggregate 1.5 x 0.5 x 0.1cm. The entire specimen is submitted in one cassette. 09/05/2024 TC:0 CPT:62335
--- NOTE | 2024-09-05 11:16 | OP.COLON_ITS ---
Patient Name: Scar Slaughter Procedure Date: 09/05/2024 10:55 AM Date of : 1945 Age: 79 Procedure: Colonoscopy Indications: High risk colon cancer surveillance: Personal history of colonic polyps Providers: Keagan Mares MD Referring MD: Keagan Mares MD Medicines: Propofol per Anesthesia Patient Profile: This is a 79 year old male. Refer to note in patient chart for documentation of history and physical. Last Colonoscopy: 5 years ago. Complications: No immediate complications. Estimated blood loss: Minimal. Procedure: Pre-Anesthesia Assessment: - Prior to the procedure, a History and Physical was performed, and patient medications and allergies were reviewed. The patient's tolerance of previous anesthesia was also reviewed. The risks and benefits of the procedure and the sedation options and risks were discussed with the patient. All questions were answered, and informed consent was obtained. Prior Anticoagulants: The patient has taken no anticoagulant or antiplatelet agents. After reviewing the risks and benefits, the patient was deemed in satisfactory condition to undergo the procedure. After I obtained informed consent, the scope was passed under direct vision. Throughout the procedure, the patient's blood pressure, pulse, and oxygen saturations were monitored continuously. The Colonoscope was introduced through the anus and advanced to the cecum, identified by appendiceal orifice and ileocecal valve. The colonoscopy was performed without difficulty. The patient tolerated the procedure well. The quality of the bowel preparation was good. The ileocecal valve, appendiceal orifice, and rectum were photographed. Scope In: 10:57:41 AM Scope Withdrawal Time 0 hours 10 minutes 29 seconds Scope Out: 11:10:36 AM Total Procedure Duration Time 0 hours 12 minutes 55 seconds Findings: Two sessile polyps were found in the ascending colon. The polyps were medium in size. These polyps were removed with a saline injection-lift technique using a hot snare. Resection and retrieval were complete. The exam was otherwise without abnormality on direct and retroflexion views. Impression: - Two medium polyps in the ascending colon, removed using injection-lift and a hot snare. Resected and retrieved. - The examination was otherwise normal on direct and retroflexion views. Recommendation: - Discharge patient to home. - Resume previous diet. - Continue present medications. - Await pathology results. - Repeat colonoscopy in 5 years for surveillance. Procedure Code(s): --- Professional --- 38668, Colonoscopy, flexible; with removal of tumor(s), polyp(s), or other lesion(s) by snare technique 96712, Colonoscopy, flexible; with directed submucosal injection(s), any substance Diagnosis Code(s): --- Professional --- Z86.010, Personal history of colonic polyps D12.2, Benign neoplasm of ascending colon CPT copyright 2021 [employer]. All rights reserved. The codes documented in this report are preliminary and upon supervisor cytology review may be revised to meet current compliance requirements. Keagan Mares MD 09/05/2024 11:15:33 AM This report has been signed electronically. Number of Addenda: 0 Note Initiated On: 09/05/2024 10:55 AM
--- NOTE | 2024-09-05 11:16 | OP.CCLET_ITS ---
09/05/2024 Binh Vargas MD [address] [place] [address] Re : Colonoscopy procedure for Scar Slaughter Dear Dr. Vargas This procedure was performed on Thursday, September 05, 2024. My impressions and recommendations are as follows: Impressions : - Two medium polyps in the ascending colon, removed using injection-lift and a hot snare. Resected and retrieved. - The examination was otherwise normal on direct and retroflexion views. Recommendations : - Discharge patient to home. - Resume previous diet. - Continue present medications. - Await pathology results. - Repeat colonoscopy in 5 years for surveillance. My findings are described in the full procedure note, which is enclosed. If I can be of further assistance, please feel free to contact me at Doctor phone number(s): , Work: . Sincerely, Keagan Mares MD 09/05/2024 11:15:33 AM This report has been signed electronically.
--- NOTE | 2024-09-05 11:16 | PCM.POST.ANE ---
Anesthesia: Postop Eval I Current Vital Signs Temperature: 97.3 F Pulse Rate: 74 Blood Pressure: 77/57 (MAP 64, receiving fluid bolus) Respiratory Rate: 16 Pulse Ox: 98 Oxygen Delivery Method: Room Air Assessment Airway patent: Yes Spontaneous unlabored respirations: Yes Mental status: Awake and Calm nausea: No Vomiting: No Anesthesia Complication: No Fluid Hydration Crystalloid volume administer (ml): 700 Total IV fluid infused: 700 Progress Note Anesthesia document: Postop Eval 1 completed: Yes
--- NOTE | 2024-09-05 11:19 | POSTOPAN2_ITS ---
Anesthesia Postop Eval I Sum Postop Eval Completion status Anesthesia document: Postop Eval 1 completed: Yes Anesthesia Postop Eval I Summary Anesthesia Postop Eval I Summary: Anesthesia Postop Eval I: Assessment Summary Airway patent Yes 09/05/24 11:17 SURGICAL SERVICES [email or web address] Spontaneous unlabored Yes 09/05/24 11:17 SURGICAL SERVICES MANAGERLOBITO respirations Mental status Awake,Calm 09/05/24 11:17 SURGICAL SERVICES MANAGER.SHILPA nausea No 09/05/24 11:17 SURGICAL SERVICES MANAGER.SHILPA Vomiting No 09/05/24 11:17 SURGICAL SERVICES MANAGERLOBITO Anesthesia Postop Eval I: Fluid Summary Crystalloid volume administer 700 09/05/24 11:17 SURGICAL SERVICES MANAGER.SHILPA (ml) Colloids volume administered ( ml) Blood Product volume administered (ml) Total IV fluid infused 700 09/05/24 11:17 SURGICAL SERVICES MANAGERLOBITO Anesthesia Postop Eval I: Summary Notes Anesthesia Complication No 09/05/24 11:17 ANGELIA Anesthesia Complication Comment: Post-operative progress note Anesthesia: Postop Eval II Evaluation Mental status: Awake Pain Level: 0 nausea: No Vomiting: No
--- NOTE | 2024-09-05 11:19 | PCM.POSTANE2 ---
Anesthesia Postop Eval I Sum Postop Eval Completion status Anesthesia document: Postop Eval 1 completed: Yes Anesthesia Postop Eval I Summary Anesthesia Postop Eval I Summary: Anesthesia Postop Eval I: Assessment Summary Airway patent Yes 09/05/24 11:17 DRY KILN BURNER.[email or web address] Spontaneous unlabored Yes 09/05/24 11:17 DRY KILN BURNERLOBITO respirations Mental status Awake,Calm 09/05/24 11:17 DRY KILN BURNER.SHILPA nausea No 09/05/24 11:17 DRY KILN BURNER.SHILPA Vomiting No 09/05/24 11:17 DRY KILN BURNERLOBITO Anesthesia Postop Eval I: Fluid Summary Crystalloid volume administer 700 09/05/24 11:17 DRY KILN BURNER.SHILPA (ml) Colloids volume administered ( ml) Blood Product volume administered (ml) Total IV fluid infused 700 09/05/24 11:17 DRY KILN BURNERLOBITO Anesthesia Postop Eval I: Summary Notes Anesthesia Complication No 09/05/24 11:17 ANGELIA Anesthesia Complication Comment: Post-operative progress note Anesthesia: Postop Eval II Evaluation Mental status: Awake Pain Level: 0 nausea: No Vomiting: No
== END 2024-09-05 11:54 | disposition home or self-care (01) ==
LOC: EN 09:47 → AC 09:48
PROVIDERS: PCP Family Medicine; Referring Provider Surgery; Visit Provider Surgery
PROC: 0DJD8ZZ Inspection of Lower Intestinal Tract, Via Natural or Artificial Opening Endoscopic (ICD-10-PCS; CPT 45378; principal; 2024-09-05 11:10)
DX: Z12.11 Encounter for screening for malignant neoplasm of colon (principal); C18.2 Malignant neoplasm of ascending colon; D12.2 Benign neoplasm of ascending colon; I10 Essential (primary) hypertension; Z79.899 Other long term (current) drug therapy; Z79.82 Long term (current) use of aspirin; Z87.891 Personal history of nicotine dependence; Z86.0100 Personal history of colon polyps, unspecified
CPT/HCPCS: 45385; 45381; 81002; 88305; 88341; 88342; J7120; A4216

== ENCOUNTER → 2024-10-25 | Outpatient (CLI) | payer MEDICARE, BC, SELFPAY ==
--- NOTE | 2024-10-25 06:45 | CT_ITS ---
STUDY: CT CHEST, ABDOMEN T PELVIS WITH CONTRAST REASON FOR EXAM: Male, 79 years old. Colon cancer , NEW DIAGNOSES RADIATION DOSAGE (If Supplied By Facility): CTDIvol = ( 21.85 ) mGy, DLP = ( 2243.70 ) mGycm TECHNIQUE: Transaxial imaging was performed following intravenous administration of 100mL Isovue-370. Individualized dose optimization techniques were used for this CT. COMPARISON: No relevant priors. FINDINGS: CHEST The lungs are normal. No pleural effusions. Normal heart and pericardium. Normal mediastinum. Normal hilar regions. Normal unenhanced pulmonary arteries. No aortic aneurysm. No acute or aggressive abnormality. ABDOMEN No free air or free fluid. Normal liver. Normal gallbladder and extrahepatic biliary system. Normal spleen. Normal pancreas. Normal bilateral adrenal glands. Small right renal cortical cysts. Left hydroureteronephrosis without calculus in the ureteral lumen. Normal visualized stomach. No abnormal large or small bowel distention. Focal inflammatory bowel wall changes. The appendix is visualized and appears normal. Normal abdominal aorta. Normal retroperitoneum. Normal abdominal wall. No acute or aggressive osseous abnormality. PELVIS Irregular thickening of the urinary bladder wall. There is no pelvic fluid. There is no pelvic lymphadenopathy or mass lesion. Surgical clips or implant seeds in the prostate bed. Normal visualized pelvic arteries. Small bilateral fat-containing inguinal hernias. No acute or aggressive osseous abnormality. CT/CT Chest, Abd, Pel w/Contrast IMPRESSION: No acute findings or evidence of metastatic disease in the thorax. Left hydroureteronephrosis without obstructing lesion in the ureteral lumen. Further evaluation may require retrograde and contrast enhanced studies. Recommend urological consultation. Irregular bladder wall thickening. Intrinsic bladder wall pathology is suspected, inflammatory versus neoplastic in cystoscopic correlation advised. Electronically Signed: Siva Andujar MD at 17:07 [facility] ,
[2024-10-25 07:09] LABS: CREATININE FINGERSTICK < 1.0 mg/dL (0.70-1.30); EGFR FINGERSTICK > 60.0000 mL/min (>60)
== END | disposition home or self-care (01) ==
LOC: CT 06:45
PROVIDERS: PCP Family Medicine; Referring Provider Surgery; Visit Provider Surgery
DX: C80.1 Malignant (primary) neoplasm, unspecified (principal)
CPT/HCPCS: 71260; 74177; Q9967

== ENCOUNTER → 2024-11-16 | Outpatient (CLI) | payer MEDICARE, BC, SELFPAY ==
--- NOTE | 2024-11-16 06:00 | ECHOD_ITS ---
Reason For Study: AFIB Procedure This was a 2D Doppler, Color Flow transthoracic echocardiogram. Exam performed in department. Left Ventricle Normal LV size. Mild concentric left ventricular hypertrophy. Left ventricular systolic function is normal. The left ventricular ejection fraction is 65 %. No regional wall motion abnormalities noted. Right Ventricle Normal RV size. Normal systolic function. Atria The left atrium is mildly enlarged. The right atrium is moderately enlarged. Mitral Valve Normal mitral valve. Mild (1+) eccentric mitral valve insufficiency. Tricuspid Valve Normal tricuspid valve. Mild (1+) tricuspid valve insufficiency. Pulmonary artery systolic pressure is 44 mmHg. Aortic Valve Trisinus/trileaflet aortic valve. Pulmonic Valve Normal pulmonic valve. Great Vessels Normal aortic root. The pulmonary artery is normal size. Inferior vena cava collapse with respiration. Pericardium/Pleural No pericardial effusion. MMode/2D Measurements & Calculations LVIDd: 4.6 cm IVSd: 1.3 cm LVOT diam: 2.2 cm LVIDs: 3.3 cm LVPWd: 1.3 cm LVOT area: 3.9 cm2 FS: 29.2 % Ao root diam: 3.5 cm LAV(MOD-bp): 80.7 ml LVAd ap4: 35.0 cm2 LAV(MOD-bp) Indexed: 34.6 ml/m2 LVLd ap4: 9.3 cm LAV(MOD-sp2): 84.7 ml EDV(MOD-sp4): 111.4 ml LAV(MOD-sp4): 77.9 ml EDV(sp4-el): 112.3 ml LVAs ap4: 19.8 cm2 LVLs ap4: 8.0 cm ESV(MOD-sp4): 44.7 ml ESV(sp4-el): 41.5 ml EF(MOD-sp4): 59.9 % EF(sp4-el): 63.1 % SV(MOD-sp4): 66.8 ml SV(sp4-el): 70.9 ml LA A4 area: 25.1 cm2 SI(MOD-sp4): 28.6 ml/m2 LA dimension(2D): 4.6 cm RA A4 area: 30.7 cm2 Time Measurements MV dec time: 0.13 sec Doppler Measurements & Calculations MV E max vijay: 78.5 cm/sec Lat Peak E' Vijay: 19.5 cm/sec Med Peak E' Vijay: 7.3 cm/sec MV A max vijay: 51.1 cm/sec E/E' lat: 4.0 E/E' med: 10.7 MV E/A: 1.5 MV V2 max: 116.8 cm/sec Ao V2 max: 106.6 cm/sec MV max P.5 mmHg MV dec slope: 586.0 cm/sec2 Ao max P.5 mmHg MV V2 mean: 59.9 cm/sec Ao V2 mean: 75.2 cm/sec MV mean P.8 mmHg Ao mean P.6 mmHg MV V2 VTI: 23.0 cm Ao V2 VTI: 24.4 cm AV (velocity ratio): 0.92 MVA(VTI): 3.8 cm2 MAITE(I,D): 3.6 cm2 MAITE(V,D): 3.5 cm2 LV V1 max: 95.4 cm/sec SV(LVOT): 87.5 ml PA V2 max: 90.8 cm/sec LV V1 max P.6 mmHg PA V2 mean: 63.6 cm/sec LV V1 mean P.1 mmHg LV V1 mean: 66.8 cm/sec LV V1 VTI: 22.4 cm TR max vijay: 316.6 cm/sec TR max P.1 mmHg ECHO/Echo Complete Interpretation Summary Normal LV size. Left ventricular systolic function is normal. The left ventricular ejection fraction is 65 %. Mild concentric left ventricular hypertrophy. Pulmonary artery systolic pressure is 44 mmHg. Ordering Physician: Perez Chao Referring Physician: Perez Chao Performed By: Alexandria Brewer RCS
--- NOTE | 2024-11-16 09:57 | STRESSREP ---
Stress Test Report Pharmacologic myocardial perfusion stress test. 79-year-old man for preop cardiac evaluation Resting EKG demonstrates sinus rhythm with a rate of 60 bpm. Resting blood pressure is 128/72 mmHg. 0.4 mg of regadenoson was infused per usual protocol followed by rapid intravenous saline flush injection. Continuous EKG monitoring was performed. The maximum heart rate was 82 bpm which was 57% of max impacted heart rate the maximum workload was 1 metabolic equivalent. At rest there were no ST or T wave changes noted to suggest ischemia and at peak infusion nonspecific ST changes were noted which did not meet the criteria for ischemia. No clinical angina is noted. The final blood pressure was 114/62 mmHg. Myocardial perfusion protocol. 14.9 mCi of technetium 99m sestamibi was injected at rest. 0.4 mg of regadenoson was infused per usual protocol. At peak infusion 44.8 mCi of technetium 99m sestamibi was injected stress images were obtained stress and rest images were reconstructed and compared in the short axis vertical long and horizontal long axis. Gated images were also obtained. Perfusion SPECT analysis: Review of the stress images demonstrate normal uptake of tracer noted in all areas of the myocardium. The resting images similar demonstrated normal uptake of tracer noted in all areas of the myocardium. No areas of reversibility are noted to suggest ischemia and no previous infarct is noted. Gated SPECT analysis: The gated ejection fraction is 63%. Conclusion: Normal pharmacologic myocardial perfusion stress test. Preserved ejection fraction.
== END | disposition home or self-care (01) ==
LOC: CVS 05:56
PROVIDERS: PCP Family Medicine; Referring Provider Internal Medicine Cardiovascular Disease; Visit Provider Internal Medicine Cardiovascular Disease
DX: Z01.810 Encounter for preprocedural cardiovascular examination (principal); I48.92 Unspecified atrial flutter; I34.0 Nonrheumatic mitral (valve) insufficiency
CPT/HCPCS: 78452; 93017; 93306; A9500; A4216; J2785

== ENCOUNTER 2024-11-28 05:09 | Inpatient (IN) | payer MEDICARE, BC, SELFPAY ==
--- NOTE | 2024-11-08 07:44 | EKG12_ITS ---
Test Reason : PREOP Blood Pressure : */* mmHG Vent. Rate : 98 BPM Atrial Rate : 234 BPM P-R Int : * ms QRS Dur : 144 ms QT Int : 366 ms P-R-T Axes : 252 -51 33 degrees QTcB Int : 467 ms Atrial flutter with variable A-V block Right bundle branch block Left anterior fascicular block Bifascicular block Abnormal ECG Reconfirmed by RO PÉREZ, ARSENIO ([id number]), assistant editor JOANN GAN ([id number]) on 11/08/2024 12:55:32 PM Referred By: ALEX Confirmed By: ARSENIO STARR MD
[2024-11-08 08:25] LABS: Hematocrit 37.3 % (40-54); Hemoglobin 12.9 g/dL (13.0-16.5); Mean Corp Hgb Conc 34.6 g/dL (32-36); Mean Corpuscular Hgb 31.5 pg (27.0-32.0); Mean Platelet Vol. 9.4 fl (6.2-12.0); Platelet Count 229 K/mm3 (150-450); RBC Distribution Width CV 13.8 % (11.6-14.6); RBC Distribution Width SD 46.2 fl (35.1-43.9); White Blood Count 7.9 K/mm3 (4.4-11.0)
[2024-11-08 08:50] LABS: Anion Gap 7 (5-15); BUN 19 mg/dL (7-18); BUN/Creat Ratio 17.1 RATIO (10-20); Calcium,Total 9.2 mg/dL (8.5-10.1); Chloride 107 mmol/L (98-107); Creatinine, Serum 1.11 mg/dL (0.70-1.30); EST Glomerular Filtration Rate 68 mL/min (>60); Est Glom Filt Rate - Afr Amer 82 mL/min (>60); Glucose 205 mg/dL (74-106); Magnesium 1.9 mg/dL (1.6-2.6); Potassium 3.9 mmol/L (3.5-5.1); Sodium Level 139 mmol/L (136-145)
--- NOTE | 2024-11-27 09:14 | PAT.ANE_ITS ---
Pre-Assessment Diagnosis/Proposed Procedure Planned Operative Procedure(s): LAP RIGHT SIOBHAN COLECTOMY Anesthesia History Anesthesia History - supervisor maintenance and custodians: Anesthesia History - supervisor maintenance and custodians Hx Hospitalization No 10/31/24 08:32 Any Problems With Anesthesia No 10/31/24 08:32 Cholinesterase deficiency No 10/31/24 08:32 You/Your Family Experience No 10/31/24 08:32 fever (hyperthermia) with Relationship Recent Exposure to Contagious No 09/05/24 10:15 Disease Does patient have nerve No 10/31/24 08:32 stimulator Patient instructed to have device shut off --Does patient have Pacemaker or ICD? When Was Last Pacemaker Check QUESTION #4 FULL TEXT: You/Your Family Experience fever (hyperthermia) with Anesthesia Last Oral Intake Last Oral intake: Last Oral Intake NPO since Meds taken in AM with sips of water? Meds patient instructed to take am of surgery PONV PONV - supervisor maintenance and custodians: PONV - supervisor maintenance and custodians Female No 10/31/24 08:32 HX of Motion Sickness No 10/31/24 08:32 HX of N/V After Surgery No 10/31/24 08:32 Non-Smoker Yes 10/31/24 08:32 Duration of Surgery greater Yes 10/31/24 08:32 than 60 minutes Number of Risk Factors 2 10/31/24 08:32 PONV Score Moderate Risk 10/31/24 08:32 Height & Weight Height & Weight: Anesthesia: Height & Weight Height 6 ft 11/15/24 11:18 Respiratory Assessment Respiratory Assessment - supervisor maintenance and custodians: Respiratory Tract Infection Hx - supervisor maintenance and custodians Hx Respiratory Tract Infection No 10/31/24 08:32 STOP Sleep Apnea STOP Sleep Apnea - supervisor maintenance and custodians: STOP Sleep Apnea - supervisor maintenance and custodians Hx Hypertension Yes: CONTROLLED WITH MEDS 10/31/24 08:32 Hx Sleep Apnea Yes 10/31/24 08:32 CPAP Yes: NONCOMPLIANT 10/31/24 08:32 BIPAP No 10/31/24 08:32 Do you snore loudly (louder than talking or can be heard Do you often feel tired/ fatigued/ sleepy during daytime? Has anyone observed you stop breathing during sleep? STOP Results Positive 10/31/24 08:32 QUESTION #5 FULL TEXT : Do you snore loudly (louder than talking or can be heard through closed doors)? 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 Specify any problems Hx of Preganancy in last 3 N/A 10/31/24 08:32 Months Nurse Filling Out Transfusion DSCHRIBER 10/31/24 08:32 & Questions: Date: 10/31/24 10/31/24 08:32 Time: 08:33 10/31/24 08:32 Patient unable to answer at this time (ie. confused, unrespo /Reproduction History /Reproductive History - supervisor maintenance and custodians: /Reproductive Hx- supervisor maintenance and custodians Hx Now Gestational Age (in weeks): EDC: Hx Hx Para Hx Section SAB No 10/31/24 08:32 PFSH Medical History Preoperative cardiovascular examination Colon cancer Adenocarcinoma Low back pain Atrial flutter CPAP (continuous positive airway pressure) dependence Hx of fracture of arm Cancer Bladder disease Hypertension Home Medications ?Medication ?Instructions ?Recorded ?Last Taken ?Type aspirin 81 mg tablet,delayed 81 mg PO DAILY SUPPLEMENT 10/25/19 08/31/24 History release hydrochlorothiazide 25 mg tablet 25 mg PO DAILY BP 08/12/21 Unknown History finasteride 5 mg tablet 5 mg PO DAILY PROSTATE 03/31/24 Unknown History rosuvastatin 5 mg tablet 5 mg PO DAILY CHOLESTEROL 03/31/24 Unknown History ascorbic acid (vitamin C) 1,000 mg 1 g PO DAILY SUPPLEMENT 08/08/24 Unknown History capsule cholecalciferol (vitamin D3) 25 25 mcg PO QDAY SUPPLEMENT 08/08/24 Unknown History mcg (1,000 unit) capsule amlodipine 10 mg tablet 10 mg PO DAILY BP 09/04/24 09/05/24 07:30 History lisinopril 40 mg tablet 40 mg PO DAILY BP 09/04/24 09/05/24 07:30 History metronidazole 500 mg tablet 500 mg PO .COMPLEX PREP #6 tabs 10/04/24 Unknown Rx neomycin 500 mg tablet 500 mg PO .COMPLEX pre-op 10/04/24 Unknown Rx antibiotics #6 tabs silodosin 8 mg capsule 8 mg PO QDAY 11/10/24 Unknown History leuprolide (4 month) 30 mg (4 30 mg IM [id number] 11/15/24 Unknown History month) intramuscular syringe kit (Lupron Depot) metoprolol succinate 50 mg 50 mg PO QDAY #90 tabs 11/15/24 Unknown Rx tablet,extended release 24 hr (Toprol XL) Allergy/AdvReac Type Severity Reaction Status Date / Time No Known Allergies Allergy Verified 11/15/24 11:22 Family History Mother Diabetes Surgical History Hx of colonoscopy with polypectomy Hx of hand surgery Social History Smoking Status: Former smoker alcohol intake: current alcohol intake frequency: holidays/special occasions only substance use type: does not use Audit: Pertinent Findings Pertinent Findings EKG Perinent findings: November 15, 2024. Sinus rhythm 100 bpm. Right bundle branch block with left axis bifascicular block Stress test pertinent findings: November 16, 2024. Ejection fraction is 63%. No ischemia is noted. No previous infarct. Echo (EF%) pertinent findings: November 16, 2024. Ejection fraction 65%. Pulmonary artery systolic pressure is 44 mmHg. There is no aortic stenosis noted. Consult pertinent findings: November 15, 2024. Dr. Chao. 1. Preop cardiovascular clearance. Patient appears stable. Due to his age we will plan for echo and stress to evaluate cardiac function. See above. 2. Hypertension. Good control at this time. 3. Atrial flutter. Will start him on metoprolol XL. Will evaluate cardiac function with echo. Recommendation Anesthesia Recommendation Anesthesia recommendation: OPTIMIZED for anesthesia
[2024-11-28] VITALS (14 sets, daily range): BP systolic 83–113; BP diastolic 56–74; PULSE 70–109; RESP 16–18; TEMP 35.8–37.4; O2SAT 94–100; BMI 32.8
[2024-11-28] MEDS: 0.9% Normal Saline (1000mL) 1,000 ML 15 ML IV (06:30)
[2024-11-28] MEDS: Magnesium 2 GM for ERAS IV (06:30)
[2024-11-28] MEDS: Gabapentin 600 MG Tablet PO (06:42)
[2024-11-28] MEDS: Acetaminophen 500 MG Tablet 1000 MG PO (06:42)
--- NOTE | 2024-11-28 06:47 | HP.PCM_ITS ---
History and Physical Date of Admission: 11/28/24 Intake Vital Signs 09/05/2410:15 10/04/2413:20 Height 6 ft 6 ft Weight: 240 lb 8 oz BMI 32.5 BP 106/73 Blood Pressure Location Rt brachial Position Sitting Respiration 17 Pulse 96 Pulse Source Monitor Temp 96 F L Temp Source Temporal Pulse Oximetry (%) 95 Oxygen Delivery Method room air Intake Visit Reasons: Discuss Colectomy Chief Complaint: discuss colectomy Is patient in pain?: No Allergies No Known Allergies Allergy (Verified 10/04/24 13:21) Medications ?Medication ?Instructions ?Recorded ?Confirmed ?Type aspirin 81 mg tablet,delayed 81 mg PO DAILY 10/25/19 10/04/24 History release hydrochlorothiazide 25 mg tablet 25 mg PO DAILY 08/12/21 10/04/24 History finasteride 5 mg tablet 5 mg PO DAILY 03/31/24 10/04/24 History rosuvastatin 5 mg tablet 5 mg PO DAILY 03/31/24 10/04/24 History ascorbic acid (vitamin C) 1,000 mg 1 g PO DAILY 08/08/24 10/04/24 History capsule cholecalciferol (vitamin D3) 25 25 mcg PO QDAY 08/08/24 10/04/24 History mcg (1,000 unit) capsule amlodipine 10 mg tablet 10 mg PO DAILY 09/04/24 10/04/24 History lisinopril 40 mg tablet 40 mg PO DAILY 09/04/24 10/04/24 History Have you fallen in the past year?: No PFSH Medical History Wears dentures CPAP (continuous positive airway pressure) dependence Hx of fracture of arm Wears glasses Cancer Alcohol use Bladder disease Prostate disease Former smoker Leg cramps Prostate cancer Hypertension Surgical History Hx of colonoscopy with polypectomy Hx of hand surgery Social History Smoking Status: Former smoker alcohol intake: current alcohol intake frequency: holidays/special occasions only HPI HPI HPI: Patient is a 79-year-old male here for discussion of colectomy for his colon cancer. He has no new complaints this is colonoscopy. ROS General General: Yes fatigue; No weight change, appetite, colon cancer, breast cancer or weakness HEENT HEENT: No difficulty swallowing, eye injury, eye surgery, swollen glands or hoarseness Endo Endocrine: No thyroid disease, diabetes mellitus, thyroid cancer, Hair loss, heat intolerance or cold intolerance Skin Skin: No rash or changing moles Musc Musculoskeletal: Yes back problems; No arthritis, rheumatoid arthritis, gout or joint pain Cardio Cardiovascular: Yes high blood pressure; No murmur, pacemaker, heart disease, atrial fibrillation, heart attack, heart stent, palpitations, shortness of breat with exertion or chest pain Psych Psychiatric: No depression, anxiety or hearing voices Resp Respiratory: No shortness of breath, Yes sleep apnea, No cough, No COPD, No asthma, No emphysema and No wheezing Gastro Gastrointestinal: No abdominal pain, No nausea or vomiting, No diarrhea, No constipation, No blood in stool, No acid reflux, No hemorrhoids, No ulcers, No gallbladder problem and No black,tarry stools Marquez Hematologic: No blood thinners, No blood disorders, No bleeding, No anemia and No blood clots Neuro Neurologic: No system reviewed and no additional complaints, except as documented, No as per HPI, No abnormal gait, No abnormal hearing, No abnormal movements, No abnormal speech, No behavioral changes, No burning sensations, No confusion, No convulsions, No disequilibrium, No dizziness, No localized weakness, No frequent falls, No headache(s), No lack of coordination, No loss of vision, No memory loss, Yes numbness, No other visual disturbances, No radicular pain, No restless legs, No sensory deficit, No syncope, Yes tingling, No tremor(s), No weakness and No other Exam Const General: cooperative Orientation: alert and oriented x3 HENMT Head: normal to inspection Neck Neck: normal visual inspection and full ROM Chest Chest palpation & inspection: normal inspection of the chest Resp Effort & Inspection: normal respiratory effort Auscultation: clear to auscultation bilaterally Cardio Rate: regular rate Rhythm: regular rhythm GI Inspection: non-distended Palpation: soft and nontender Skin General: no rashes or lesions noted Neuro General: patient alert and patient oriented x3 Extrem General: full ROM Psych Appearance: grossly normal Mental Status: mental status grossly normal Assessment and Plan Assessment and Plan (1) Colon cancer: Status: Acute Qualifiers: Colon location: ascending Qualified Code(s): C18.2 - Malignant neoplasm of ascending colon Plan: The patient had 2 polyps removed from the distal ascending colon and this came back as cancer arising from a tubular adenoma. The margins were positive and the deep cauterized margin. I recommended right hemicolectomy for the patient to remove the area of the polyp as well as check the lymph nodes. I will order a CT scan of the chest abdomen pelvis to evaluate and I will schedule him for a sending colectomy. I discussed lap right hemicolectomy with the patient in detail. I discussed the risks including but not limited to bleeding, infection, injury other organs, anastomotic leak. Keagan Mares MD Pager: [facility] [address] [place] [address] [place] [address] Office: The patient had his first surgery canceled due to atrial flutter. He had a cardiac workup and he is now here for his right hemicolectomy. Other than that there have been no changes. I have examined the patient and the H&P has been reviewed. There are no clinical changes since date of exam.
--- NOTE | 2024-11-28 06:56 | PRE.ANES_ITS ---
ASA Classification* ASA Classification ASA Classification: 3 Assessment & Plan Anesthesia* Anesthesia Assessment Anesthesia Assessment: Discussed sedation and/or anesthesia options, risks, benefits, and alternatives with patient/parents/legal guardian/POA. Questions invited. The patient/parents/legal guardian/POA seems to understand and agrees to proceed with anesthesia plan. Reviewed the physical assessment, medical history, allergy history and patient home medications list prior to surgery/procedure/anesthetic and documented any changes. Performed airway and anesthesia risk assessments. Anesthesia Type Anesthesia Type: General Anesthesia Focused Assessment* Temperature: 99.4 F Pulse Rate: 75 Blood Pressure: 108/66 Respiratory Rate: 16 Pulse Ox: 97 Airway Assessment Mouth opens: >3 cm Mallampati Score: II Focused Labs Anesthesia Preop lab: CBC WBC 7.9 K/mm3 (4.4-11.0) 11/08/24 08:00 RBC 4.10 M/mm3 (4.6-6.2) L 11/08/24 08:00 Hgb 12.9 g/dL (13.0-16.5) L 11/08/24 08:00 Hct 37.3 % (40-54) L 11/08/24 08:00 Plt Count 229 K/mm3 (150-450) 11/08/24 08:00 CHEMISTRY Potassium 3.9 mmol/L (3.5-5.1) 11/08/24 08:00 Sodium 139 mmol/L (136-145) 11/08/24 08:00 Magnesium 1.9 mg/dL (1.6-2.6) 11/08/24 08:00 BUN 19 mg/dL (7-18) H 11/08/24 08:00 Creatinine 1.11 mg/dL (0.70-1.30) 11/08/24 08:00 Glucose 205 mg/dL (74-106) H 11/08/24 08:00 TSH 0.93 uIU/mL (0.358-3.74) 12/25/16 08:33 COAG Pre-Assessment Diagnosis/Proposed Procedure Planned Operative Procedure(s): LAP RIGHT SIOBHAN COLECTOMY Anesthesia History Anesthesia History - system administrator: Anesthesia History - system administrator Hx Hospitalization No 10/31/24 08:32 Any Problems With Anesthesia No 10/31/24 08:32 Cholinesterase deficiency No 10/31/24 08:32 You/Your Family Experience No 10/31/24 08:32 fever (hyperthermia) with Relationship Recent Exposure to Contagious No 11/28/24 06:28 Disease Does patient have nerve No 10/31/24 08:32 stimulator Patient instructed to have device shut off --Does patient have Pacemaker No 11/28/24 06:15 or ICD? When Was Last Pacemaker Check QUESTION #4 FULL TEXT: You/Your Family Experience fever (hyperthermia) with Anesthesia Last Oral Intake Last Oral intake: Last Oral Intake NPO since 03:30 11/28/24 06:15 Meds taken in AM with sips of Yes 11/28/24 06:15 water? Meds patient instructed to take am of surgery PONV PONV - system administrator: PONV - system administrator Female No 10/31/24 08:32 HX of Motion Sickness No 10/31/24 08:32 HX of N/V After Surgery No 10/31/24 08:32 Non-Smoker Yes 10/31/24 08:32 Duration of Surgery greater Yes 10/31/24 08:32 than 60 minutes Number of Risk Factors 2 10/31/24 08:32 PONV Score Moderate Risk 10/31/24 08:32 Height & Weight Height & Weight: Anesthesia: Height & Weight Height 6 ft 11/28/24 06:15 Weight: 110 kg 11/28/24 06:15 Body Mass Index (BMI) 32.8 11/28/24 06:15 Respiratory Assessment Respiratory Assessment - system administrator: Respiratory Tract Infection Hx - system administrator Hx Respiratory Tract Infection No 10/31/24 08:32 STOP Sleep Apnea STOP Sleep Apnea - system administrator: STOP Sleep Apnea - system administrator Hx Hypertension Yes: CONTROLLED WITH MEDS 10/31/24 08:32 Hx Sleep Apnea Yes 10/31/24 08:32 CPAP Yes: NONCOMPLIANT 10/31/24 08:32 BIPAP No 10/31/24 08:32 Do you snore loudly (louder than talking or can be heard Do you often feel tired/ fatigued/ sleepy during daytime? Has anyone observed you stop breathing during sleep? STOP Results Positive 10/31/24 08:32 QUESTION #5 FULL TEXT : Do you snore loudly (louder than talking or can be heard through closed doors)? 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 Specify any problems Hx of Preganancy in last 3 N/A 10/31/24 08:32 Months Nurse Filling Out Transfusion DSCHRIBER 10/31/24 08:32 & Questions: Date: 10/31/24 10/31/24 08:32 Time: 08:33 10/31/24 08:32 Patient unable to answer at this time (ie. confused, unrespo /Reproduction History /Reproductive History - system administrator: /Reproductive Hx- system administrator Hx Now Gestational Age (in weeks): EDC: Hx Hx Para Hx Section SAB No 10/31/24 08:32 Active Medications Active Medications: Current Medications Generic Name Dose Route Start Last Admin Trade Name Freq PRN Reason Stop Dose Admin Magnesium Sulfate 2 gm/ 104 mls @ 208 mls/hr 11/28/24 07:30 11/28/24 06:30 Dextrose IV 11/28/24 07:59 208 mls/hr X1 ONE Administration Cefotetan Disodium 2 gm/ 100 mls @ 200 mls/hr 11/28/24 07:00 Sodium Chloride IV 11/28/24 07:29 PREOP ONE Sodium Chloride 1,000 mls @ 15 mls/hr 11/28/24 06:15 11/28/24 06:30 IV 12/03/24 19:34 15 mls/hr .Q48H IRMA Administration Protocol PFSH Medical History Preoperative cardiovascular examination Colon cancer Adenocarcinoma Low back pain Atrial flutter CPAP (continuous positive airway pressure) dependence Hx of fracture of arm Cancer Bladder disease Hypertension Home Medications ?Medication ?Instructions ?Recorded ?Last Taken ?Type aspirin 81 mg tablet,delayed 81 mg PO DAILY SUPPLEMENT 10/25/19 08/31/24 History release hydrochlorothiazide 25 mg tablet 25 mg PO DAILY BP 08/12/21 Unknown History finasteride 5 mg tablet 5 mg PO DAILY PROSTATE 03/31/24 11/28/24 History rosuvastatin 5 mg tablet 5 mg PO DAILY CHOLESTEROL 03/31/24 Unknown History ascorbic acid (vitamin C) 1,000 mg 1 g PO DAILY SUPPLEMENT 08/08/24 Unknown History capsule cholecalciferol (vitamin D3) 25 25 mcg PO QDAY SUPPLEMENT 08/08/24 Unknown History mcg (1,000 unit) capsule amlodipine 10 mg tablet 10 mg PO DAILY BP 09/04/24 11/28/24 History lisinopril 40 mg tablet 40 mg PO DAILY BP 09/04/24 09/05/24 07:30 History metronidazole 500 mg tablet 500 mg PO .COMPLEX PREP #6 tabs 10/04/24 11/27/24 Rx neomycin 500 mg tablet 500 mg PO .COMPLEX pre-op 10/04/24 11/27/24 Rx antibiotics #6 tabs silodosin 8 mg capsule 8 mg PO QDAY 11/10/24 Unknown History leuprolide (4 month) 30 mg (4 30 mg IM [id number] 11/15/24 Unknown History month) intramuscular syringe kit (Lupron Depot) metoprolol succinate 50 mg 50 mg PO QDAY heart #90 tabs 11/15/24 11/28/24 Rx tablet,extended release 24 hr (Toprol XL) Allergy/AdvReac Type Severity Reaction Status Date / Time No Known Allergies Allergy Verified 11/28/24 06:03 Family History Mother Diabetes Surgical History Hx of colonoscopy with polypectomy Hx of hand surgery Social History Smoking Status: Former smoker alcohol intake: current alcohol intake frequency: holidays/special occasions only substance use type: does not use Review of Systems (Anesthesia) ROS Narrative System reviewed and no additional complaints, except as documented.
[2024-11-28 07:09] LABS: Bedside Glucose 157 mg/dL (74-106)
--- NOTE | 2024-11-28 08:02 | RAD_ITS ---
STUDY: X-RAY CHEST REASON FOR EXAM: Male, 79 years old. Palpitations TECHNIQUE: Single AP portable view of the chest. COMPARISON: CT chest from 10/25/2024 FINDINGS: EKG leads overlie the chest The lungs are clear and expanded. There is no demonstrated pleural abnormality. Normal size heart. Normal mediastinum and vilma. Normal visualized pulmonary arteries. Normal visualized aortic arch and descending thoracic aorta. There are diffuse degenerative changes of the visualized thoracic spine. Normal visualized ribs, clavicles, and shoulders. There is no demonstrated abnormality of the visualized soft tissue structures of the upper abdomen. RAD/Chest 1 View (Portable) IMPRESSION: No acute pulmonary process Electronically Signed: Bennie Gonsales MD at 8:24 EST ,
--- NOTE | 2024-11-28 08:03 | EKG12_ITS ---
Test Reason : ARRYTH Blood Pressure : */* mmHG Vent. Rate : 106 BPM Atrial Rate : 106 BPM P-R Int : 180 ms QRS Dur : 150 ms QT Int : 420 ms P-R-T Axes : * -48 -9 degrees QTcB Int : 557 ms Sinus tachycardia Right bundle branch block Left anterior fascicular block Bifascicular block Abnormal ECG When compared with ECG of 08-Nov-2024 07:50, Sinus rhythm has replaced Atrial flutter QT has lengthened Confirmed by RO PÉREZ, ARSENIO ([id number]), supervising film or videotape editor ALONZO ANSARI ([id number]) on 11/30/2024 9:10:40 AM Referred By: Suzan Confirmed By: ARSENIO STARR MD
--- NOTE | 2024-11-28 08:16 | PCM.POST.ANE ---
Anesthesia: Postop Eval I Current Vital Signs Temperature: 98.5 F Pulse Rate: 105 Blood Pressure: 104/73 Respiratory Rate: 18 Pulse Ox: 97 Oxygen Delivery Method: Venturi Mask Oxygen Flow Rate (L/min): 8 Assessment Airway patent: Yes Spontaneous unlabored respirations: Yes Mental status: Awake and Calm nausea: No Vomiting: No Anesthesia Complication: Yes Anesthesia Complication Comment:: 5-10 minutes after induction, Aflutter occured with no ventricular beats for 1 minute . chest comp ensued. vent beats noted@1-2 min. case cancelled. vital signs stablized to Sinus rhythme. post op ekg no change. Dr. Chao notified. Troponin, electrolytes pending. Fluid Hydration Crystalloid volume administer (ml): 400 Total IV fluid infused: 400 Progress Note Anesthesia document: Postop Eval 1 completed: Yes
--- NOTE | 2024-11-28 08:18 | PCM.PN.BLA ---
Progress Note The patient had a cardiac event during surgery. Anesthesia was induced and shortly after he became heart block with a flutter and bradycardia down to 0. Chest compressions were initiated. There was no pulse initially. After about a minute of chest compressions a pulse check was performed and he had a return of spontaneous circulation. Patient was awoken and taken to PACU. Chest x-ray was completed as well as a twelve-lead EKG and troponins and checking electrolytes. The patient will be admitted to PCU with cardiology on consult. Keagan Mares MD Pager: [facility] [address] [place] [address], [address] [place] [address] Office:
--- NOTE | 2024-11-28 08:34 | PCM.POSTANE2 ---
Anesthesia Postop Eval I Sum Postop Eval Completion status Anesthesia document: Postop Eval 1 completed: Yes Anesthesia Postop Eval I Summary Anesthesia Postop Eval I Summary: Anesthesia Postop Eval I: Assessment Summary Airway patent Yes 11/28/24 08:22 Spontaneous unlabored Yes 11/28/24 08:22 respirations Mental status Awake,Calm 11/28/24 08:22 nausea No 11/28/24 08:22 Vomiting No 11/28/24 08:22 Anesthesia Postop Eval I: Fluid Summary Crystalloid volume administer 400 11/28/24 08:34 (ml) Colloids volume administered ( ml) Blood Product volume administered (ml) Total IV fluid infused 400 11/28/24 08:34 Anesthesia Postop Eval I: Summary Notes Anesthesia Complication Yes 11/28/24 08:22 Anesthesia Complication 5-10 minutes after 11/28/24 08:34 Comment: induction, Aflutter occured with no ventricular beats for 1 minute . chest comp ensued. vent beats noted@ 1-2 min. case cancelled. vital signs stablized to Sinus rhythme. post op ekg no change. Dr. Chao notified. Troponin , electrolytes pending. Post-operative progress note Anesthesia: Postop Eval II Evaluation Mental status: Awake and Calm Pain Level: 0 nausea: No Vomiting: No
[2024-11-28 08:36] LABS: Anion Gap 7 (5-15); BUN 21 mg/dL (7-18); BUN/Creat Ratio 17.2 RATIO (10-20); Calcium,Total 8.7 mg/dL (8.5-10.1); Chloride 106 mmol/L (98-107); Creatinine, Serum 1.22 mg/dL (0.70-1.30); EST Glomerular Filtration Rate 61 mL/min (>60); Est Glom Filt Rate - Afr Amer 74 mL/min (>60); Estimated Creatinine Clearance 63.92 ml/min; Glucose 163 mg/dL (74-106); Magnesium 2.7 mg/dL (1.6-2.6); Sodium Level 136 mmol/L (136-145); Troponin-I HS 11 pg/mL (3.0-78.0)
[2024-11-28] MEDS: 0.9% Normal Saline (1000mL) 1,000 ML 60 ML IV (09:04)
--- NOTE | 2024-11-28 09:38 | EKG12_ITS ---
Test Reason : AF Blood Pressure : */* mmHG Vent. Rate : 74 BPM Atrial Rate : 205 BPM P-R Int : * ms QRS Dur : 134 ms QT Int : 444 ms P-R-T Axes : 59 -38 -16 degrees QTcB Int : 492 ms Atrial flutter with variable A-V block Left axis deviation Right bundle branch block Abnormal ECG When compared with ECG of 28-Nov-2024 08:07, MANUAL COMPARISON REQUIRED DATA IS UNCONFIRMED Confirmed by RO PÉREZ, ARSENIO ([id number]), film editor supervisor JOANN GAN ([id number]) on 11/28/2024 12:26:37 PM Referred By: Confirmed By: ARSENIO STARR MD
[2024-11-28] MEDS: Morphine 2 MG/ML Syringe IV ×2 (10:07→15:19)
[2024-11-28] MEDS: Acetaminophen 325 MG Tablet 650 MG PO ×2 (13:37→20:39)
--- NOTE | 2024-11-28 15:04 | CON.PCM.CA_ITS ---
Assessment & Plan Assessment/Plan (1) Atrial flutter: PLAN: Patient has been noted to have atrial flutter with a controlled ventricular response rate. He apparently had an episode in the perioperative period which is not documented to suggest high-grade AV block. At this time my suspicion is that this may have been due to anesthesia agent exacerbating his block. I do not have any rhythm strips to corroborate the above and do not think that he necessarily needs a permanent pacemaker prior to his colectomy. I would recommend that we observe him overnight and if no significant rhythm abnormalities are noted then I would say that we proceed with surgery probably holding his beta-rodney of the day of surgery. I will leave it up to the surgeon as to when and where this will take place. (2) Hypertension: PLAN: Blood pressure appears to be under stable control at this time. Thank you for allowing me to participate in the care of your patient. Please don't hesitate to call if any issues arise. HPI Consult Data Date of Consult: 11/28/24 HPI Narrative HPI Narrative: AXEL BAUER, is a 79 M who presents today to have a colectomy on account of colonic polyps. According to the surgeon the patient was being induced for anesthesia and went into heart block requiring a few seconds of CPR and patient recovered his normal rhythm which was atrial flutter fibrillation with a controlled ventricular response rate. His EKG prior to going in demonstrated atrial flutter with variable block right bundle branch block and a leftward axis which was unchanged from before. He had been seen in consultation in the office and had undergone an echocardiogram with demonstrated preserved ejection fraction as well as a pharmacologic myocardial perfusion stress test which also demonstrated preserved function with no evidence of ischemia. He was started on a low-dose beta-rodney and has felt well since starting. Unfortunately there are no rhythm strips to confirm whether he did go asystolic or high-grade AV block or lead disruption. He was seen by me in the PACU and was noted to have atrial of flutter with a controlled ventricular response rate and patient was completely conversant. [facility] Medical History Preoperative cardiovascular examination Colon cancer Adenocarcinoma Low back pain Atrial flutter CPAP (continuous positive airway pressure) dependence Hx of fracture of arm Cancer Bladder disease Hypertension Home Medications ?Medication ?Instructions ?Recorded ?Last Taken ?Type aspirin 81 mg tablet,delayed 81 mg PO DAILY SUPPLEMENT 10/25/19 08/31/24 History release hydrochlorothiazide 25 mg tablet 25 mg PO DAILY BP 08/12/21 Unknown History finasteride 5 mg tablet 5 mg PO DAILY PROSTATE 03/31/24 11/28/24 04:30 History rosuvastatin 5 mg tablet 5 mg PO DAILY CHOLESTEROL 03/31/24 Unknown History ascorbic acid (vitamin C) 1,000 mg 1 g PO DAILY SUPPLEMENT 08/08/24 Unknown History capsule cholecalciferol (vitamin D3) 25 25 mcg PO QDAY SUPPLEMENT 08/08/24 Unknown History mcg (1,000 unit) capsule amlodipine 10 mg tablet 10 mg PO DAILY BP 09/04/24 11/28/24 04:30 History lisinopril 40 mg tablet 40 mg PO DAILY BP 09/04/24 11/27/24 History metronidazole 500 mg tablet 500 mg PO .COMPLEX PREP #6 tabs 10/04/24 11/27/24 Rx neomycin 500 mg tablet 500 mg PO .COMPLEX pre-op 10/04/24 11/27/24 Rx antibiotics #6 tabs silodosin 8 mg capsule 8 mg PO QDAY prostate cancer 11/10/24 Unknown History leuprolide (4 month) 30 mg (4 30 mg IM [id number] prostate cancer 11/15/24 Unknown History month) intramuscular syringe kit (Lupron Depot) metoprolol succinate 50 mg 50 mg PO QDAY heart #90 tabs 11/15/24 11/28/24 04:30 Rx tablet,extended release 24 hr (Toprol XL) Allergy/AdvReac Type Severity Reaction Status Date / Time No Known Allergies Allergy Verified 11/28/24 06:03 Family History Mother Diabetes Surgical History Hx of colonoscopy with polypectomy Hx of hand surgery Social History Smoking Status: Former smoker alcohol intake: current alcohol intake frequency: holidays/special occasions only substance use type: does not use ROS Constitutional Constitutional: Denies fever(s) or weight loss Eyes Eyes: Reports systems reviewed and no addt'l complaints, except as documented ENT HEENT: Reports systems reviewed and no addt'l complaints, except as documented Cardiovascular Cardiovascular: Denies chest pain at rest, chest pain with activity, dyspnea at rest, dyspnea on exertion, edema, palpitations or paroxysmal nocturnal dyspnea Respiratory/Chest Respiratory/Chest: Denies dyspnea on exertion, productive cough, shortness of breath at rest or shortness of breath with exertion Gastrointestinal Gastrointestinal: Denies change in bowel habits, nausea, vomiting or weight changes Genitourinary Genitourinary: Denies difficulty urinating Musculoskeletal Musculoskeletal: Denies joint stiffness or muscle weakness Integumentary Integumentary: Denies lesions Neurologic Neurologic: Denies dizziness or syncope Psychiatric Psychiatric: Denies anxiety Endocrine Endocrinology: Denies excessive sweating or fatigue Hematologic/Lymphatic Hematologic/Lymphatic: Denies anemia Allergic/Immunologic Allergic/Immunologic: Denies seasonal rhinorrhea Physical Exam Const alert, oriented x3 and no apparent distress General Appearance: cooperative HEENT hearing grossly normal bilaterally Head and Scalp: atraumatic Eyes EOMs intact bilaterally Neck General: normal visual inspection Chest inspection of chest normal and palpation of chest normal Resp normal respiratory effort Auscultation: clear to auscultation bilaterally Cardio regular rate, regular rhythm, S1 normal heart sound and S2 normal heart sound Jugular Venous Distention: JVD GI normal to inspection, nondistended, normoactive bowel sounds Extremity normal capillary refill and no pedal edema Peripheral Pulses: Yes pulses 2+ throughout and femoral pulses present Skin no rashes or lesions noted Neuro oriented x3 and CN's II-XII intact bilaterally Psych Appearance: grossly normal and appropriate Risk Stratification Risk Stratification Applicable: No Objective Data Vital Signs: Vital Signs Temp Pulse Resp BP Pulse Ox O2 Del Method O2 Flow Rate 97.6 F L 77 16 101/56 L 94 Room Air 3 11/28/24 09:52 11/28/24 09:52 11/28/24 09:52 11/28/24 09:52 11/28/24 09:52 11/28/24 09:53 11/28/24 09:00 Oxygen Flow Rate (L/min) 3 Oxygen Delivery Method Room Air Weight: 242 lb 8.136 oz Body Mass Index (BMI) 32.8 Intake & Output: Intake and Output for Last 24 Hours 11/26/24 11/27/24 11/28/24 23:59 23:59 23:59 Intake Total 1724 / 1724 Balance 1724 / 1724 Lab / Micro Data 11/08/24 08:00 11/28/24 08:06 Labs: Laboratory Results - last 24 hr 11/28/24 06:47: POC Glucose 157 H 11/28/24 08:06: Sodium 136, Potassium 4.0, Chloride 106, Carbon Dioxide 24.0, Anion Gap 7, BUN 21 H, Creatinine 1.22, Estim Creat Clear Calc 63.92, Est GFR (MDRD) Af Amer 74, Est GFR (MDRD) Non-Af 61, BUN/Creatinine Ratio 17.2, Glucose 163 H, Calcium 8.7, Magnesium 2.7 H, Troponin I High Sens 11 Cardiology Labs/Tests 11/28/24 08:06: Sodium 136, Potassium 4.0, Chloride 106, Carbon Dioxide 24.0, Anion Gap 7, BUN 21 H, Creatinine 1.22, Est GFR (MDRD) Af Amer 74, Est GFR (MDRD) Non-Af 61, BUN/Creatinine Ratio 17.2, Glucose 163 H, Calcium 8.7, M agnesium 2.7 H Rhythm: EKG: ECHO: Stress Test: Cardiac Cath: PCI: CT Surgery: Holter monitor: EPS: PPM: CXR: Chest CT Scan: Radiography Diagnostic Testing: Radiology Impression Chest X-Ray 11/28/24 08:02 IMPRESSION: No acute pulmonary process Electronically Signed: Bennie Gonsales MD at 8:24 EST Reading Location ID and State: [address] [place] [address] , Service support ,
[2024-11-29 02:50] VITALS: BP 117/78; PULSE 78; RESP 18; TEMP 36.1; O2SAT 94
[2024-11-29 04:29] LABS: Basophil# 0.02 X10^3/uL; Basophil% 0.2 % (0-1); Eosinophil# 0.25 X10^3/uL; Eosinophils% 2.6 % (0-5); Hematocrit 36.7 % (40-54); Hemoglobin 12.5 g/dL (13.0-16.5); Lymphocyte % 15.6 % (19-41); Mean Corp Hgb Conc 34.1 g/dL (32-36); Mean Corpuscular Hgb 31.3 pg (27.0-32.0); Mean Platelet Vol. 9.6 fl (6.2-12.0); Monocyte% 8.3 % (0-10); NRBC Flagged by Analyzer 0 % (0-5); Neutrophil # 7.02 X10^3/uL (2.7-7.7); Platelet Count 195 K/mm3 (150-450); RBC Distribution Width CV 13.5 % (11.6-14.6); RBC Distribution Width SD 46.3 fl (35.1-43.9); Red Blood Count 3.99 M/mm3 (4.6-6.2); White Blood Count 9.6 K/mm3 (4.4-11.0)
[2024-11-29 04:50] LABS: Anion Gap 6 (5-15); BUN 28 mg/dL (7-18); BUN/Creat Ratio 24.6 RATIO (10-20); Calcium,Total 8.6 mg/dL (8.5-10.1); Chloride 108 mmol/L (98-107); Creatinine, Serum 1.14 mg/dL (0.70-1.30); EST Glomerular Filtration Rate 66 mL/min (>60); Est Glom Filt Rate - Afr Amer 80 mL/min (>60); Estimated Creatinine Clearance 68.41 ml/min; Glucose 166 mg/dL (74-106); Potassium 4.2 mmol/L (3.5-5.1); Sodium Level 137 mmol/L (136-145)
[2024-11-29] MEDS: 0.9% Normal Saline (1000mL) 1,000 ML 25 ML IV (06:37)
[2024-11-29 08:05] VITALS: BP 125/81; PULSE 94; RESP 16; TEMP 36.2; O2SAT 96
[2024-11-29] MEDS: Finasteride 5 MG Tablet PO (08:08)
[2024-11-29] MEDS: amLODIPine 10 MG Tablet PO (08:08)
[2024-11-29 08:09] VITALS: BP 125/81; PULSE 94
[2024-11-29] MEDS: Metoprolol(XL)Succ 50 MG Tablet PO (08:09)
[2024-11-29] MEDS: Atorvastatin Calcium 10 MG Tablet PO (08:09)
[2024-11-29] MEDS: hydroCHLOROthiazide 25 MG Tablet PO (08:09)
[2024-11-29] MEDS: Ascorbic Acid 500 MG Tablet 1000 MG PO (08:09)
[2024-11-29] MEDS: Aspirin E.C. 81 MG Tablet PO (08:09)
[2024-11-29] MEDS: Tamsulosin HCl 0.4 MG Capsule PO (08:09)
[2024-11-29] MEDS: Cholecalciferol (VIT D3) 25 MCG TABLET (1,000 UNITS) PO (08:09)
[2024-11-29] MEDS: Lisinopril 40 MG Tablet PO (08:15)
[2024-11-29] MEDS: Acetaminophen 325 MG Tablet 650 MG PO (08:15)
[2024-11-29] MEDS: 0.9% Saline Lock 10 ML Syringe IV (08:15)
--- NOTE | 2024-11-29 09:57 | DCINST_ITS ---
Discharge Instructions Diet Discharge Diet: No restrictions DC O2, CPAP, BIPAP needs Home O2 Discharge instructions: No Dressing / Incision Discharge Activity: Return to Normal Activity Ice area for (Minutes): 20 (chest wall) Lifting Restrictions: 20lbs Dressing / Incision Call your doctor if you observe: Shortness of breath, Fainting spells, Increased palpitations (irregular heartbeat) and Uncontrolled pain Follow Up Care Please Follow Up With: Keagan Mares MD When: 1 week Test Results: Test results from this visit will be discussed in further detail at your follow- up appointment, if applicable. Discharge Plan Admission Admit Date/Time: 11/28/24 05:09 Primary Reason for Your Visit: Post cardiac arrest care following aborted colon surgery Attending Provider: Keagan Mares Primary Care Provider: Binh Vargas Consulting Providers: Perez Chao Instructions Additional Instructions / Restrictions: Please continue regular use of incentive spirometer Discharge Orders/Prescriptions Prescriptions: Continued finasteride 5 mg tablet 5 mg PO DAILY rosuvastatin 5 mg tablet 5 mg PO DAILY cholecalciferol (vitamin D3) 25 mcg (1,000 unit) capsule 25 mcg PO QDAY ascorbic acid (vitamin C) 1,000 mg capsule 1 g PO DAILY silodosin 8 mg capsule 8 mg PO QDAY Lupron Depot (4 month) 30 mg syringe kit 30 mg IM [id number] metoprolol succinate [Toprol XL] 50 mg tablet extended release 24 hr 50 mg PO QDAY Qty: 90 3RF aspirin 81 MG tablet,delayed release (DR/EC) 81 mg PO DAILY hydrochlorothiazide 25 mg Tablet 25 mg PO DAILY amlodipine 10 mg tablet 10 mg PO DAILY lisinopril 40 mg tablet 40 mg PO DAILY Discontinued metronidazole 500 mg tablet 500 mg PO .COMPLEX Qty: 6 0RF Rx Instructions: 500 mg PO Take 2 (two) tablets at 1300, 1500, 2300 neomycin 500 mg tablet 500 mg PO .COMPLEX Qty: 6 0RF Rx Instructions: Take two (2) 500 mg tablets PO at 1300, 1500, 2300 Referrals / Follow Up: Binh Vargas MD [Primary Care Provider] - Disposition Disposition (needs filled in before D/C Order can be placed): Home, Self Care
--- NOTE | 2024-11-29 10:01 | DS.PCM_ITS ---
Providers Date of Admission: 11/28/24 Primary Care Physician: Dr. Binh Vargas MD Consultations 11/28/24 08:21 Consult: Cardiology Routine Consulting Provider: Perez Chao Reason for Consult: a flutter with heart block EMERGENT Consult: No MD Notified: Yes Date Notified: 11/28/24 Time Notified: 08:23 Method of Notification: Verbal Reason For Visit: Laparoscopic,Right Maikel Colectomy Diagnosis Discharge Diagnosis (1) Atrial flutter: Status: Acute Code(s): I48.92 - Unspecified atrial flutter (2) Hypertension: Status: Chronic Code(s): I10 - Essential (primary) hypertension Medications at Discharge Home Medications aspirin 81 mg tablet,delayed release 81 mg PO DAILY SUPPLEMENT 10/25/19 hydrochlorothiazide 25 mg tablet 25 mg PO DAILY BP 08/12/21 finasteride 5 mg tablet 5 mg PO DAILY PROSTATE 03/31/24 rosuvastatin 5 mg tablet 5 mg PO DAILY CHOLESTEROL 03/31/24 ascorbic acid (vitamin C) 1,000 mg capsule 1 g PO DAILY SUPPLEMENT 08/08/24 cholecalciferol (vitamin D3) 25 mcg (1,000 unit) capsule 25 mcg PO QDAY SUPPLEMENT 08/08/24 amlodipine 10 mg tablet 10 mg PO DAILY BP 09/04/24 lisinopril 40 mg tablet 40 mg PO DAILY BP 09/04/24 silodosin 8 mg capsule 8 mg PO QDAY prostate cancer 11/10/24 leuprolide (4 month) 30 mg (4 month) intramuscular syringe kit (Lupron Depot) 30 mg IM [id number] prostate cancer 11/15/24 metoprolol succinate 50 mg tablet,extended release 24 hr (Toprol XL) 50 mg PO QDAY heart #90 tabs 11/15/24 Hospital Course Operations None Procedures CPR performed and EKG Summary of Care Provided Hospital Course: Patient is a 79-year-old male who was admitted to the hospital following aborted colectomy procedure for diagnosis of invasive adenocarcinoma after he experienced a cardiac arrest upon anesthesia induction. Fortunately experienced return of spontaneous circulation after limited CPR and was admitted to the hospital for ongoing monitoring. Cardiac consultation was obtained immediately but the cause for patient's cardiac event was still incompletely understood. Suspected to be related to adverse reaction to anesthesia medications. Post procedurally patient was closely monitored but had no further telemetry events. Chest x-ray was obtained to evaluate for possible rib fractures as patient describes significant chest wall discomfort but chest x-ray was unremarkable. Analgesia was provided along with instruction on strict pulmonary toilet to try to minimize patient's risk for developing atelectasis, effusion, possible pneumonia due to restricting respiratory effort. Patient and his significant other expressed understanding the importance of these maneuvers and hospital day 2 patient was given NSAIDs to assist with his pain control. Follow-up conversation was also held with cardiology who deemed patient fit for discharge to home without further testing. Therefore, based on this assessment and patient's request he is granted discharge to home with outpatient follow-up requested in the general surgery office in approximately [address] Mares to determine next steps in patient's care plan. Physical Exam Const alert and oriented x3 Constitutional Narrative: Expresses discomfort from chest wall General Appearance: cooperative Resp Resp Narrative: Patient with normal respiratory effort and vital capacity of over 2000 mL demonstrated on his incentive spirometry Weight / BMI Weight Weight: 242 lb 8.136 oz Body Mass Index (BMI) 32.8 ABG / Lab / Microbiology Data 11/29/24 04:05 11/29/24 04:05 Laboratory: Laboratory Results - last 24 hr 11/29/24 04:05: WBC 9.6, RBC 3.99 L, Hgb 12.5 L, Hct 36.7 L, MCV 92.0, MCH 31.3, MCHC 34.1, RDW Std Deviation 46.3 H, RDW Coeff of Chauncey 13.5, Plt Count 195, MPV 9.6, Immature Gran % (Auto) 0.300, Neut % (Auto) 73.0 H, Lymph % (Auto) 15.6 L, [place] % (Auto) 8.3, Eos % (Auto) 2.6, Baso % (Auto) 0.2, Absolute Neuts (auto) 7.0, Absolute Lymphs (auto) 1.50, Nucleated RBC % 0, Sodium 137, Potassium 4.2, Chloride 108 H, Carbon Dioxide 23.0, Anion Gap 6, BUN 28 H, Creatinine 1.14, Estim Creat Clear Calc 68.41, Est GFR (MDRD) Af Amer 80, Est GFR (MDRD) Non-Af 66, BUN/Creatinine Ratio 24.6 H, Glucose 166 H, Calcium 8.6 D/C Instructions Discharge Diet: No restrictions Ice area for (Minutes): 20 (chest wall) Call your doctor if you observe: Shortness of breath, Fainting spells, Increased palpitations (irregular heartbeat) and Uncontrolled pain DC O2, CPAP, BIPAP Needs Home O2 Discharge instructions: No Please Follow Up With: Keagan Mares MD When: 1 week Meaningful Use Info Meaningful Use Meaningful Use Diagnoses (Choose all that apply): None applicable Ischemic Stroke Statin Dosing Therapy Reference: STATIN DOSE THERAPY REFERENCE: * Patients > 75 years receive moderate or high dose statin therapy. * Patients 75 years or YOUNGER should receive HIGH intensity statin dose unless contraindicated. You will be required to document reason for non-treatment if statin daily dose does not meet guidelines. HIGH DOSE STATIN THERAPY DAILY Atorvastatin > than or = to 40 mg Rosuvastatin > than or = to 20 mg Amlodipine + Atorvastatin > than or = to 2.5/40 mg Ezetimibe + Simvastatin 10/80 mg Simvastatin 80mg Discharge Plan Admission Admit Date/Time: 11/28/24 05:09 Primary Reason for Your Visit: Post cardiac arrest care following aborted colon surgery Attending Provider: Keagan Mares Primary Care Provider: Binh Vargas Consulting Providers: Perez Chao Instructions Additional Instructions / Restrictions: Please continue regular use of incentive spirometer Discharge Orders/Prescriptions Prescriptions: Continued finasteride 5 mg tablet 5 mg PO DAILY rosuvastatin 5 mg tablet 5 mg PO DAILY cholecalciferol (vitamin D3) 25 mcg (1,000 unit) capsule 25 mcg PO QDAY ascorbic acid (vitamin C) 1,000 mg capsule 1 g PO DAILY silodosin 8 mg capsule 8 mg PO QDAY Lupron Depot (4 month) 30 mg syringe kit 30 mg IM [id number] metoprolol succinate [Toprol XL] 50 mg tablet extended release 24 hr 50 mg PO QDAY Qty: 90 3RF aspirin 81 MG tablet,delayed release (DR/EC) 81 mg PO DAILY hydrochlorothiazide 25 mg Tablet 25 mg PO DAILY amlodipine 10 mg tablet 10 mg PO DAILY lisinopril 40 mg tablet 40 mg PO DAILY Discontinued metronidazole 500 mg tablet 500 mg PO .COMPLEX Qty: 6 0RF Rx Instructions: 500 mg PO Take 2 (two) tablets at 1300, 1500, 2300 neomycin 500 mg tablet 500 mg PO .COMPLEX Qty: 6 0RF Rx Instructions: Take two (2) 500 mg tablets PO at 1300, 1500, 2300 Referrals / Follow Up: Binh Vargas MD [Primary Care Provider] - Disposition Disposition (needs filled in before D/C Order can be placed): Home, Self Care Charges/Coding Visit Charges Inpatient E&M: 51223 Disch Hosp
--- NOTE | 2024-11-29 10:07 | PN.CARD_ITS ---
Objective Data Vital Signs: Vital Signs Temp Pulse Resp BP Pulse Ox O2 Del Method O2 Flow Rate 97.2 F L 94 16 125/81 H 96 Room Air 3 11/29/24 08:05 11/29/24 08:09 11/29/24 08:05 11/29/24 08:09 11/29/24 08:05 11/29/24 08:24 11/28/24 09:00 Oxygen Flow Rate (L/min) 3 Oxygen Delivery Method Room Air Weight: 242 lb 8.136 oz Body Mass Index (BMI) 32.8 Intake & Output: Intake and Output for Last 24 Hours 11/27/24 11/28/24 11/29/24 23:59 23:59 23:59 Intake Total 2606 / 2606 271.25 / 271.25 Balance 2606 / 2606 271.25 / 271.25 Lab / Micro Data 11/29/24 04:05 11/29/24 04:05 Labs: Laboratory Results - last 24 hr 11/29/24 04:05: WBC 9.6, RBC 3.99 L, Hgb 12.5 L, Hct 36.7 L, MCV 92.0, MCH 31.3, MCHC 34.1, RDW Std Deviation 46.3 H, RDW Coeff of Chauncey 13.5, Plt Count 195, MPV 9.6, Immature Gran % (Auto) 0.300, Neut % (Auto) 73.0 H, Lymph % (Auto) 15.6 L, [place] % (Auto) 8.3, Eos % (Auto) 2.6, Baso % (Auto) 0.2, Absolute Neuts (auto) 7.0, Absolute Lymphs (auto) 1.50, Nucleated RBC % 0, Sodium 137, Potassium 4.2, Chloride 108 H, Carbon Dioxide 23.0, Anion Gap 6, BUN 28 H, Creatinine 1.14, Estim Creat Clear Calc 68.41, Est GFR (MDRD) Af Amer 80, Est GFR (MDRD) Non-Af 66, BUN/Creatinine Ratio 24.6 H, Glucose 166 H, Calcium 8.6 Cardiology Labs/Tests 11/29/24 04:05: WBC 9.6, RBC 3.99 L, Hgb 12.5 L, Hct 36.7 L, MCV 92.0, MCH 31.3, MCHC 34.1, Plt Count 195, MPV 9.6, Immature Gran % (Auto) 0.300, Neut % (Auto) 73.0 H, Lymph % (Auto) 15.6 L, [place] % (Auto) 8.3, Eos % (Auto) 2.6, Baso % (Auto) 0.2, Absolute Neuts (auto) 7.0, Nucleated RBC % 0, Sodium 137, Potassium 4.2, Chloride 108 H, Carbon Dioxide 23.0, Anion Gap 6, BUN 28 H, Creatinine 1.14, Est GFR (MDRD) Af Amer 80, Est GFR (MDRD) Non-Af 66, BUN/Creatinine Ratio 24.6 H, Glucose 166 H, Calcium 8.6 Rhythm: EKG: ECHO: Stress Test: Cardiac Cath: PCI: CT Surgery: Holter monitor: EPS: PPM: CXR: Chest CT Scan: Physical Exam Const alert, oriented x3 and no apparent distress General Appearance: cooperative HEENT hearing grossly normal bilaterally Head and Scalp: atraumatic Eyes EOMs intact bilaterally Neck General: normal visual inspection Chest inspection of chest normal and palpation of chest normal Resp normal respiratory effort Auscultation: clear to auscultation bilaterally Cardio regular rate, regular rhythm, S1 normal heart sound and S2 normal heart sound Jugular Venous Distention: JVD GI normal to inspection, nondistended, normoactive bowel sounds Extremity normal capillary refill and no pedal edema Peripheral Pulses: Yes pulses 2+ throughout and femoral pulses present Skin no rashes or lesions noted Neuro oriented x3 and CN's II-XII intact bilaterally Psych Appearance: grossly normal and appropriate Assessment & Plan Assessment/Plan (1) Atrial flutter: PLAN: Patient has been noted to have atrial flutter with a controlled ventricular response rate. He apparently had an episode in the perioperative period which is not documented to suggest high-grade AV block. At this time my suspicion is that this may have been due to anesthesia agent exacerbating his block or perhaps high vagal stimulation. I do not have any rhythm strips to corroborate the above and do not think that he necessarily needs a permanent pacemaker prior to his colectomy. I would recommend that we observe him overnight and if no significant rhythm abnormalities are noted then I would say that we proceed with surgery probably holding his beta-rodney of the day of surgery. I will leave it up to the surgeon as to when and where this will take place. He can be discharged from the hospital from the cardiology standpoint. (2) Hypertension: PLAN: Blood pressure appears to be under stable control at this time. Thank you for allowing me to participate in the care of your patient. Please don't hesitate to call if any issues arise.
[2024-11-29] MEDS: Ibuprofen 400 MG Tablet PO (10:44)
== END 2024-11-29 11:13 | disposition home or self-care (01) | DRG 309 ==
LOC: ACINP 05:11 → PCU 08:35
PROVIDERS: Anesthesiology; Admitting Provider Surgery; PCP Family Medicine; Visit Provider Surgery
PROC: 5A12012 Performance of Cardiac Output, Single, Manual (ICD-10-PCS; CPT 44205; principal; 2024-11-28 07:10)
DX: I48.92 Unspecified atrial flutter (principal); C18.2 Malignant neoplasm of ascending colon; I97.791 Other intraoperative cardiac functional disturbances during other surgery; I10 Essential (primary) hypertension; I48.91 Unspecified atrial fibrillation; I45.10 Unspecified right bundle-branch block; T41.45XA Adverse effect of unspecified anesthetic, initial encounter; Z79.82 Long term (current) use of aspirin; Z79.899 Other long term (current) drug therapy; Z87.891 Personal history of nicotine dependence
CPT/HCPCS: 36415; 71045; 80048; 82962; 83735; 84484; 85025; 85027; 93005; A4216; J2405